=== PATIENT | female | born 1965 | race Caucasian/White ===

== ENCOUNTER → 2017-05-08 | Outpatient (CLI) | payer BC ==
--- NOTE | 2017-05-08 11:49 | XR ---
EXAM TYPE: LUMBAR SPINE X RAY SERIES COMPARISON: NONE HISTORY: Pain TECHNIQUE: 4 views are submitted. FINDINGS: Alignment is anatomic. The pedicles are intact. The transverse processes are intact. There is no s pondylolysis or spondylolisthesis. Surgical clips in the gallbladder fossa. There is a grade 1 anter olisthesis of L4 on L5. Degenerative disc disease at levels L3-4 and most marked findings at L5-S1. F acet arthropathy at L3-4, L4-5 and L5-S1. IMPRESSION: 1. Multilevel degenerative disc disease with severe changes at L5-S1. 2. Multilevel facet arthropathy with grade 1 anterolisthesis L4 on L5..
--- NOTE | 2017-05-08 12:31 | MM ---
Reason for exam: additional evaluation requested from prior study. Last mammogram was performed 3 years and 10 months ago. History: Benign US right guided mammotome of the right breast, March 17, 2008. Benign right US cyst aspiration of the right breast, May 27, 2007. Benign US right core biopsy of the right breast, May 27, 2007. Took hormonal contraceptives for 3 years beginning at age 40. Physical Findings: Nurse did not find any significant physical abnormalities on exam. MG 3D Diag Mammo W/Cad ROBERTA Bilateral CC and MLO view(s) were taken. Prior study comparison: July 08, 2013, left breast MG work up mamm w CAD LT. June 25, 2013, bilateral MG screening mammo w CAD. The breast tissue is heterogeneously dense. This may lower the sensitivity of mammography. Previous mammotome biopsy in the right breast. There is chronic nodularity in the left breast. No significant new findings when compared with previous films. These results were verbally communicated with the patient and result sheet given to the patient on 05/08/17. ASSESSMENT: Benign, BI-RAD 2 RECOMMENDATION: Routine screening mammogram of both breasts in 1 year.
== END | disposition home or self-care (01) ==
LOC: RADMAMWWP 10:57
PROVIDERS: ATTEND Family Medicine
DX: R92.8 Other abnormal and inconclusive findings on diagnostic imaging of breast (principal); M54.5 Low back pain; M51.37 Other intervertebral disc degeneration, lumbosacral region; M43.16 Spondylolisthesis, lumbar region
CPT/HCPCS: 72110; 77066; G0279

== ENCOUNTER 2017-10-07 18:12 | Emergency (ER) | payer BC ==
[2017-10-07 18:24] VITALS: RESP 16; TEMP 98
--- NOTE | 2017-10-07 18:56 | ED ---
General Adult HPI - General Chief complaint: Chest Pain Stated complaint: Chest pain Time Seen by Provider: 10/07/17 18:28 Source: patient, RN notes reviewed, old records reviewed Mode of arrival: ambulatory Limitations: no limitations - History of Present Illness Initial comments: This is a 53-year-old female the ER for evaluation of feeling something in her chest. She denies pain denies pressure, has a strong family history of heart disease but has no high blood pressure no diabetes mildly [place] high cholesterol and a nonsmoker. Patient states she had a stress test this year which was normal. She denies any symptoms at that time it was more of a maintenance type stress test. Patient states symptoms just bothered throughout the day and recurred more than once a she went to come for evaluation she did make appointment with her family doctor who told her to come to the ER. Again at this time patient remains asymptomatic no chest pain or shortness of breath. She states she does occasionally get diaphoretic but she states that seems to be with shows exercise-induced asthma but denies shortness of breath - Related Data Home Medications Medication Instructions Recorded Confirmed buPROPion HCL [Wellbutrin XL] 300 mg PO DAILY 10/29/13 10/07/17 Methylphenidate HCl [Ritalin] 10 mg PO TID 02/19/16 10/07/17 valACYclovir [Valtrex] 500 mg PO BID 02/19/16 10/07/17 Celebrex (Unknown Dose) 1 tab PO DIRECTED 10/07/17 10/07/17 Cyclobenzaprine [Flexeril] 10 mg PO HS 10/07/17 10/07/17 Ibuprofen [Motrin Ib] 400 mg PO Q6H PRN 10/07/17 10/07/17 Multivitamin,Therapeutic [Thera] 1 tab PO DAILY 10/07/17 10/07/17 Allergies Allergy/AdvReac Type Severity Reaction Status Date / Time No Known Allergies Allergy Verified 10/07/17 18:45 Review of Systems ROS Statement: Those systems with pertinent positive or pertinent negative responses have been documented in the HPI. ROS Other: All systems not noted in ROS Statement are negative. Past Medical History Past Medical History: Thyroid Disorder Additional Past Medical History / Comment(s): arthritis History of Any Multi-Drug Resistant Organisms: None Reported Past Surgical History: Cholecystectomy, Tubal Ligation Additional Past Surgical History / Comment(s): LEFT THYROID BIOPSY. Past Anesthesia/Blood Transfusion Reactions: No Reported Reaction Past Psychological History: Depression Smoking Status: Never smoker Past Alcohol Use History: Occasional, Rare Past Drug Use History: None Reported - Past Family History Mother Family Medical History: Cancer Additional Family Medical History / Comment(s): mother ovarian, father colon, son bone cancer Father Family Medical History: Cancer Additional Family Medical History / Comment(s): COLON CANCER Son(s) Family Medical History: Cancer Additional Family Medical History / Comment(s): BONE CANCER. General Exam Limitations: no limitations General appearance: alert, in no apparent distress Head exam: Present: atraumatic, normocephalic, normal inspection Eye exam: Present: normal appearance, PERRL, EOMI. Absent: scleral icterus, conjunctival injection, periorbital swelling ENT exam: Present: normal exam, mucous membranes moist Neck exam: Present: normal inspection. Absent: tenderness, meningismus, lymphadenopathy Respiratory exam: Present: normal lung sounds bilaterally. Absent: respiratory distress, wheezes, rales, rhonchi, stridor Cardiovascular Exam: Present: regular rate, normal rhythm, normal heart sounds. Absent: systolic murmur, diastolic murmur, rubs, gallop, clicks GI/Abdominal exam: Present: soft, normal bowel sounds. Absent: distended, tenderness, guarding, rebound, rigid Extremities exam: Present: normal inspection, full ROM, normal capillary refill. Absent: tenderness, pedal edema, joint swelling, calf tenderness Back exam: Present: normal inspection Neurological exam: Present: alert, oriented X3, CN II-XII intact Psychiatric exam: Present: normal affect, normal mood Skin exam: Present: warm, dry, intact, normal color. Absent: rash Course Vital Signs 10/07/17 18:17 Temperature 98.0 F Pulse Rate 99 Respiratory 16 Rate O2 Sat by Pulse 98 Oximetry - Reevaluation(s) Reevaluation #1: 10/07/17 19:57 Patient remains without significant chest pain here in the emergency room Reevaluation #2: 10/07/17 19:57 Medical record is reviewed including stress test EKG Findings - EKG Comments: EKG Findings:: EKG shows sinus rhythm rate of 82, OK 164, QRS 88, QTc 441 Medical Decision Making - Medical Decision Making 52 female the ER for evaluation of chest pain. Family history of heart disease no other significant cardiac risk factors. Patient will be discharged home, patient's symptoms are more palpitations, again no shortness of breath no pain. Patient will follow-up with family care - Lab Data Result diagrams: 10/07/17 18:41 10/07/17 18:41 Lab Results 10/07/17 10/07/17 10/07/17 Range/Units 18:41 18:41 18:41 WBC 9.7 (3.8-10.6) k/uL RBC 4.20 (3.80-5.40) m/uL Hgb 12.3 (11.4-16.0) gm/dL Hct 37.2 (34.0-46.0) % MCV 88.7 (80.0-100.0) fL MCH 29.4 (25.0-35.0) pg MCHC 33.2 (31.0-37.0) g/dL RDW 14.0 (11.5-15.5) % Plt Count 292 (150-450) k/uL Neutrophils % 63 % Lymphocytes % 28 % Monocytes % 5 % Eosinophils % 1 % Basophils % 0 % Neutrophils # 6.1 (1.3-7.7) k/uL Lymphocytes # 2.7 (1.0-4.8) k/uL Monocytes # 0.5 (0-1.0) k/uL Eosinophils # 0.1 (0-0.7) k/uL Basophils # 0.0 (0-0.2) k/uL PT (9.0-12.0) sec INR (<1.2) APTT (22.0-30.0) sec Sodium 138 (137-145) mmol/L Potassium 4.1 (3.5-5.1) mmol/L Chloride 104 (98-107) mmol/L Carbon Dioxide 24 (22-30) mmol/L Anion Gap 10 mmol/L BUN 19 H (7-17) mg/dL Creatinine 0.90 (0.52-1.04) mg/dL Est GFR (CKD-EPI)AfAm 85 (>60 ml/min/1.73 sqM) Est GFR (CKD-EPI)NonAf 74 (>60 ml/min/1.73 sqM) Glucose 126 H (74-99) mg/dL Calcium 9.2 (8.4-10.2) mg/dL Magnesium 1.9 (1.6-2.3) mg/dL Total Bilirubin 0.2 (0.2-1.3) mg/dL AST 23 (14-36) U/L ALT 29 (9-52) U/L Alkaline Phosphatase 72 (38-126) U/L Total Creatine Kinase 118 (30-135) U/L CK-MB (CK-2) 0.7 (0.0-2.4) ng/mL CK-MB (CK-2) Rel Index 0.6 Troponin I <0.012 (0.000-0.034) ng/mL Total Protein 7.0 (6.3-8.2) g/dL Albumin 3.9 (3.5-5.0) g/dL 10/07/17 Range/Units 18:41 WBC (3.8-10.6) k/uL RBC (3.80-5.40) m/uL Hgb (11.4-16.0) gm/dL Hct (34.0-46.0) % MCV (80.0-100.0) fL MCH (25.0-35.0) pg MCHC (31.0-37.0) g/dL RDW (11.5-15.5) % Plt Count (150-450) k/uL Neutrophils % % Lymphocytes % % Monocytes % % Eosinophils % % Basophils % % Neutrophils # (1.3-7.7) k/uL Lymphocytes # (1.0-4.8) k/uL Monocytes # (0-1.0) k/uL Eosinophils # (0-0.7) k/uL Basophils # (0-0.2) k/uL PT 9.8 (9.0-12.0) sec INR 1.0 (<1.2) APTT 26.2 (22.0-30.0) sec Sodium (137-145) mmol/L Potassium (3.5-5.1) mmol/L Chloride (98-107) mmol/L Carbon Dioxide (22-30) mmol/L Anion Gap mmol/L BUN (7-17) mg/dL Creatinine (0.52-1.04) mg/dL Est GFR (CKD-EPI)AfAm (>60 ml/min/1.73 sqM) Est GFR (CKD-EPI)NonAf (>60 ml/min/1.73 sqM) Glucose (74-99) mg/dL Calcium (8.4-10.2) mg/dL Magnesium (1.6-2.3) mg/dL Total Bilirubin (0.2-1.3) mg/dL AST (14-36) U/L ALT (9-52) U/L Alkaline Phosphatase (38-126) U/L Total Creatine Kinase (30-135) U/L CK-MB (CK-2) (0.0-2.4) ng/mL CK-MB (CK-2) Rel Index Troponin I (0.000-0.034) ng/mL Total Protein (6.3-8.2) g/dL Albumin (3.5-5.0) g/dL - Radiology Data Radiology results: report reviewed (Chest x-rays negative for acute disease), image reviewed Disposition Clinical Impression: Atypical chest pain, Palpitations Disposition: HOME SELF-CARE Condition: Good Instructions: Chest Pain (ED) Is patient prescribed a controlled substance at d/c from ED?: No Referrals: Nabeel Collins DO [Primary Care Provider] - 1-2 days
[2017-10-07 19:01] LABS: Basophils % (A) 0 %; Eosinophils # (A) 0.1 k/uL (0-0.7); Eosinophils % (A) 1 %; HCT 37.2 % (34.0-46.0); HGB 12.3 gm/dL (11.4-16.0); Lymphocytes # (A) 2.7 k/uL (1.0-4.8); Lymphocytes % (A) 28 %; MCH 29.4 pg (25.0-35.0); MCHC 33.2 g/dL (31.0-37.0); MCV 88.7 fL (80.0-100.0); Mean Platelet Volume 6.1; Monocytes # (A) 0.5 k/uL (0-1.0); Monocytes % (A) 5 %; Neutrophils # (A) 6.1 k/uL (1.3-7.7); Neutrophils % (A) 63 %; Platelet Count 292 k/uL (150-450); WBC 9.7 k/uL (3.8-10.6)
[2017-10-07 19:14] LABS: Creatine Kinase 118 U/L (30-135)
[2017-10-07 19:16] LABS: Albumin 3.9 g/dL (3.5-5.0); Calcium 9.2 mg/dL (8.4-10.2); Magnesium 1.9 mg/dL (1.6-2.3); Potassium 4.1 mmol/L (3.5-5.1); Total Bilirubin 0.2 mg/dL (0.2-1.3)
[2017-10-07 19:17] LABS: Partial Thromboplastin Time 26.2 sec (22.0-30.0); Prothrombin Time 9.8 sec (9.0-12.0)
[2017-10-07 19:26] LABS: Creatine Kinase MB 0.7 ng/mL (0.0-2.4); Troponin I <0.012 ng/mL (0.000-0.034)
--- NOTE | 2017-10-07 19:26 | XR ---
EXAMINATION TYPE: XR chest 2V DATE OF EXAM: 10/07/2017 COMPARISON: 02/19/2016 HISTORY: Chest pain TECHNIQUE: Frontal and lateral views of the chest are obtained. FINDINGS: Heart and mediastinum are normal. Lungs are clear. Diaphragm is normal. Bony thorax is int act. IMPRESSION: Normal chest. No change.
[2017-10-07 20:16] VITALS: BP 142/95; PULSE 87
== END 2017-10-07 20:28 | disposition home or self-care (01) ==
LOC: EC 18:12
DX: R07.89 Other chest pain (principal); R00.2 Palpitations; M19.90 Unspecified osteoarthritis, unspecified site; F32.9 Major depressive disorder, single episode, unspecified; Z79.899 Other long term (current) drug therapy; Z82.49 Family history of ischemic heart disease and other diseases of the circulatory system
CPT/HCPCS: 36415; 71046; 80053; 82550; 82553; 83735; 84484; 85025; 85610; 85730; 93005; 99285

== ENCOUNTER → 2019-01-15 | Outpatient (CLI) | payer BC ==
--- NOTE | 2019-01-15 10:03 | US ---
EXAMINATION TYPE: US thyroid st tissue head/neck DATE OF EXAM: 01/15/2019 COMPARISON: US CLINICAL HISTORY: R22.0 LOCALIZED SWELLING,MASS IN HEAD. F/U left thyroid nodule GLAND SIZE: Right Lobe: 4.6 x 1.4 x 1.1 cm Overall Parenchyma: homogenous Left Lobe: 5.4 x 2.1 x 2.0 cm Overall Parenchyma: heterogeneous Isthmus Thickness: 0.3 cm NODULES LEFT: # of nodules measured on left: 1 1. 3.5 X 1.8 x 2.0 cm isoechoic solid nodule at the mid pole with well-defined margins;This nodule is wider than tall and shows intranodular vascularity. Prior size: 2.5 x 1.5 x 1.4 cm Bilateral neck scanned, no evidence of lymphadenopathy. Left thyroid nodule increased in size when c ompared to previous. IMPRESSION: Enlarging left thyroid nodule. The need to biopsy should be made on a clinical basis.
== END | disposition home or self-care (01) ==
LOC: RADUSWWP 09:28
PROVIDERS: ATTEND Family Medicine
DX: E04.1 Nontoxic single thyroid nodule (principal)
CPT/HCPCS: 76536

== ENCOUNTER → 2019-02-01 | Outpatient (CLI) | payer BC ==
[2019-02-01 17:53] LABS: T4, Free (Free Thyroxine) 0.9 ng/dL (0.80-1.80)
== END | disposition home or self-care (01) ==
LOC: LABWHC1 10:33
PROVIDERS: ATTEND Otolaryngology
DX: E04.1 Nontoxic single thyroid nodule (principal)
CPT/HCPCS: 36415; 84439; 84443; 86376

== ENCOUNTER 2019-02-22 12:03 | Day surgery (SDC) | payer BC ==
[2019-02-22 14:28] VITALS: TEMP 98.4
[2019-02-22 14:29] VITALS: RESP 18
[2019-02-22 14:30] VITALS: BP 131/88; PULSE 75
--- NOTE | 2019-02-22 14:49 | US ---
ULTRASOUND GUIDED FNA THYROID BIOPSY: CLINICAL HISTORY: Left thyroid nodule FINDINGS: The procedure was explained to the patient. The risks, complications, benefits and alternatives were discussed and any questions were answered. Informed consent was obtained. Patient was placed supin e on the ultrasound table and prepped and draped in the usual sterile fashion. Utilizing a 25 gauge needle, five passes were made into the requested left thyroid nodule. Patient was stable throughout the procedure. Pathology is pending. All elements of maximal barrier technique were utilized. IMPRESSION: 1. Successful ultrasound guided FNA thyroid biopsy.
== END 2019-02-22 13:20 | disposition home or self-care (01) ==
LOC: RADPROMAIN 12:03
PROVIDERS: ATTEND Otolaryngology
DX: E04.1 Nontoxic single thyroid nodule (principal)
CPT/HCPCS: 10005; 88173; 88305

== ENCOUNTER 2019-03-15 05:55 | Day surgery (SDC) | payer BC ==
[2019-03-08 12:53] VITALS: BMI 38.0
--- NOTE | 2019-03-14 20:49 | HP ---
HISTORY AND PHYSICAL REASON FOR ADMISSION: Surgery tomorrow March 15, 2019. CHIEF COMPLAINT: Heavy menstrual bleeding, known uterine fibroids, known check gene mutation. HISTORY OF PRESENT ILLNESS: This is a pleasant female, 3, para 2-0-1-2, that presents for robotic assisted vaginal hysterectomy, bilateral salpingo-oophorectomy. The patient has been seen multiple times for uterine fibroids. She has seen a genetic counselor in addition to a breast surgeon regarding her known genetic mutation. The patient has had multiple ultrasounds with known enlarged uterine fibroids. The patient has been receiving Lupron in attempt to decrease the size of these fibroids for the last 3 months. PAST MEDICAL HISTORY: 1. Known check gene genetic mutation. 2. Fibroid uterus. PAST SURGICAL HISTORY: Significant for a cholecystectomy done on 02/18/2017, a tonsillectomy and tubal in 1988. MEDICATIONS: She is on: 1. Celebrex. 2. Lupron. 3. Multivitamin. 4. Ritalin 10 mg. 5. Turmeric. 6. Vitamin B12 with folic acid. 7. Wellbutrin 150 mg daily. ALLERGIES: She has no known drug allergies. PAST FAMILY MEDICAL HISTORY: Significant for an ovarian cancer which her mother was diagnosed in her 30s, uterine cancer also her mother. Heart disease in her mother. Colon and bone cancer in her mother. [employer] HISTORY: She began having menstrual cycles at age 11. Menstrual cycles have been regular prior to Lupron. She is a 3, para 2-0-1-2 with 2 prior vaginal deliveries and an ectopic . SOCIAL HISTORY: She is a nonsmoker, she does have minimal alcohol use and she is . REVIEW OF SYSTEMS: She denies body aches or night sweats. She admits to amenorrhea. She denies urinary urgency, frequency, or dysuria. She denies changes in bowel habits such as constipation, diarrhea, nausea, or vomiting. Psychiatric: She denies difficulty sleeping, but does note positive depression and some anxiety. PHYSICAL EXAM: Her vital signs are noted to be stable. She is a well-nourished, well-developed, alert female in no acute distress, her head is normocephalic, atraumatic. CHEST: Clear to auscultation bilaterally. Her heart has a regular rate and rhythm. Her abdomen is noted to be obese. Her uterus is noted to be enlarged with no adnexal masses. She is noted to have a normal mood and her affect is appropriate. Her judgment and insight are normal. ASSESSMENT: Uterine fibroids with check gene mutation, family history of ovarian cancer. PLAN: Robotic assisted vaginal hysterectomy with bilateral salpingo-oophorectomy, diagnostic cystoscopy. Risks are reviewed with the patient in detail including, but not limited to infection, bleeding, damage to bladder, bowel, ureteric injury. Patient has discussed the possibility of open surgery secondary to uterine size and inability to complete the procedure robotically/laparoscopically. The patient states understanding of all these risks and wishes to proceed. Informed consent was obtained in the office on multiple preoperative appointments. The patient states understanding and wishes to proceed to the operating room. SOURCE OF CONSULT: 1965 thank you and. MMEMILIANOL / IJN: [id number] /
[~2019-03-15 05:55] MED LIST: DEXAMETHASONE SOD PHOSPHATE 10 MG/ML 1 ML VIAL IV ONE; LACTATED RINGERS 1,000 ML IV SCH; LIDOCAINE 1% 20 ML VIAL (10MG/ML) FOR IV START INTRADERMA PRN; ONDANSETRON 4 MG/2 ML VIAL IVP ONE; SCOPOLAMINE 1.5MG/72HR PATCH TRANSDERM ONE
[2019-03-15] MEDS ORDERED: ACETAMINOPHEN IV (For NPO) 1,000 MG in EMPTY BAG 1 BAG IVPB ONE (06:00)
[2019-03-15] MEDS ORDERED: MIDAZOLAM 2 MG/2 ML VIAL IVP ONE ×2 (07:00→07:10)
[2019-03-15] MEDS ORDERED: NEOSTIGMINE 1 MG/ML 10 ML VIAL ONE (07:29)
[2019-03-15] MEDS ORDERED: SUCCINYLCHOLINE CHLORIDE 100 MG/5 ML SYR IV ONE (07:29)
[2019-03-15] MEDS ORDERED: PHENYLEPHRINE-0.9% NACL SYG 1 MG/10 ML SYRINGE ONE (07:29)
[2019-03-15] MEDS ORDERED: MIDAZOLAM 2 MG/2 ML VIAL ONE (07:29)
[2019-03-15] MEDS ORDERED: fentaNYL (PF) 50 MCG/ML 2 ML AMP ONE (07:29)
[2019-03-15] MEDS ORDERED: PROPOFOL 10 MG/ML 20 ML VIAL IV ONE (07:29)
[2019-03-15] MEDS ORDERED: LIDOCAINE 1% INJ 10MG/ML (20 ML MDV) ONE (07:29)
[2019-03-15] MEDS ORDERED: GLYCOPYRROLATE 0.2 MG/ML 2 ML VIAL ONE (07:29)
[2019-03-15] MEDS ORDERED: MEPERIDINE 50 MG/ML SYRINGE ONE (07:29)
[2019-03-15] MEDS ORDERED: ROCURONIUM BROMIDE 10 MG/ML 10 ML VIAL IV ONE (07:29)
[2019-03-15] MEDS ORDERED: LACTATED RINGERS 1,000 ML IV ONE (08:21)
[2019-03-15] MEDS ORDERED: BUPIVACAINE (PF) 0.25% 30 ML VIAL SQ ONE ×2 (08:36)
[2019-03-15] MEDS ORDERED: ONDANSETRON 4 MG/2 ML VIAL IVP PRN (10:26)
[2019-03-15] MEDS ORDERED: IBUPROFEN 600 MG TAB PO PRN (10:26)
[2019-03-15] MEDS ORDERED: HYDROcodone/APAP 5-325MG 1 EACH TAB PO PRN (10:28)
[2019-03-15] MEDS ORDERED: IBUPROFEN IV 800 MG in SODIUM CHLORIDE 0.9% 250 ML IV ONE (10:29)
--- NOTE | 2019-03-15 10:37 | P.OP ---
Date of Procedure: 03/15/19 Preoperative Diagnosis: Enlarged uterus, uterine fibroids, chek 2 gene mutation, family history of ovarian cancer Postoperative Diagnosis: Same Procedure(s) Performed: Robotic-assisted vaginal hysterectomy with left salpingo-oophorectomy, diagnostic cystoscopy. Anesthesia: AMEA Surgeon: Suzi Moran Knot Borer #1: Janis Mendoza Estimated Blood Loss (ml): 100 IV fluids (ml): 1,200 Urine output (ml): 500 Pathology: other (Uterus cervix left fallopian tube and ovary multiple fibroids) Condition: stable Disposition: PACU Indications for Procedure: Enlarged uterus, uterine fibroids, genetic mutation, family history of ovarian cancer. Operative Findings: Grossly enlarged uterus with multiple fibroids. Normal-appearing right ovary, left ovary adherent to the pelvic sidewall and colon, history of prior ectopic most likely the cause of this scarring. Description of Procedure: Patient was seen in the preoperative area and multiple questions were answered. Patient stated understanding and wished to proceed with the procedure. Patient was taken back to the operating suite where general anesthesia was obtained without difficulty by the anesthesia department. She was prepped and draped in the normal sterile fashion in the dorsal lithotomy position. Flowers catheter was placed under sterile technique. A weighted speculum was placed in the posterior vaginal vault intralipids the cervix is visualized and grasped with a single- tooth tenaculum. The endocervical canal was then dilated and a [employer] uterine manipulator was placed. This cup was placed firmly against the cervix and all instruments were removed from the patient's vaginal vault. Attention was then turned to the patient's abdomen where 3 fingerbreadths above the umbilicus a small skin incision is made. Through this incision the various needles placed. Once the Veress needle was deemed to be in the proper position with a drop of CO2 pressure with insufflation of CO2 gas CO2 insufflation was allowed to occur. This incision was then elongated to 12 mm and a 12 mm trocar and sleeve with the laparoscope in place was placed toward the pneumoperitoneum. The trocar is removed with the sheath remaining in place and the above-noted findings are visualized. The additional port sites are then placed at 10 cm lateral and 3 cm inferior to midline port these are 8 mm da Joshua operative ports. In the left upper quadrant a 12 mm trocar and sleeve is placed under direct visualization. At this time the da Joshua robot was docked in the usual fashion. In the right operative arm the monopolar scissors is placed, and the left operative arm the bipolar forceps is placed. Attention then turned to the patient's left uterine ovarian ligament which was mottled secondary to prior ectopic surgery. It was coagulated distally and proximally divided. The round ligament was visualized coagulated distally and proximally divided. The vesicouterine peritoneum was identified and the bladder flap was then created using sharp and blunt dissection. Attention was then turned to the patient's right infundibulopelvic ligament which was visualized coagulated distally and proximally and divided. Hemostasis was appreciated. This continued through the broad toward the round which was coagulated and transected. Hemostasis was appreciated. The bladder flap was then created from the right using sharp and blunt dissection. At this time a Ray-Reinaldo was introduced into the abdomen as a means to dissect the bladder bluntly away from the operating field. This was then removed. The ascending branch of the uterine artery was visualized on the right coagulated distally and proximally divided. This was then repeated on the opposite side. Hemostasis was appreciated. At this time the only remaining attachment was a vaginal attachment therefore colpotomy incision was made in a circumferential fashion. Secondary to the uterine size of the fibroids were transected, 3 fibroids were transected from the body of the uterus the uterus was delivered through the vaginal opening along with these 3 fibroids. The vaginal cuff was then copiously irrigated and hemostasis was appreciated. The vaginal cuff was then closed with 0 Vicryl in a [id number] fashion. 5 sutures were used to obtain closure. Irrigation was once again performed, hemostasis was appreciated. At this time all instruments were removed from the patient's abdomen and the da Joshua was undocked in the usual fashion. Attention was then turned to the patient's Flowers catheter which was removed without difficulty clear urine was noted to be draining within the Flowers tube. A cystoscopy was then performed. Cystoscope through the urethra and toward the bladder bladder bubble was noted. Both ureteral orifices were noted to be spilling clear yellow urine. At this time the cystoscopy fluid along with the cystoscope was removed and the Flowers catheter was replaced. Attention then turned the patient's abdomen where the skin incisions were closed with 4-0 Vicryl in a subcuticular fashion. Steri-Strips and sterile dressings were applied as needed. Patient tolerated procedure well all counts were correct 2 and patient was taken the recovery room awake in stable condition.
[2019-03-15] MEDS ORDERED: ONDANSETRON 4 MG/2 ML VIAL IVP ONE (11:10)
[2019-03-15] MEDS: HYDROmorphone 0.5 MG/0.5 ML SYRINGE IVP PRN ×2 (11:17→11:30)
[2019-03-15] MEDS: HYDROcodone/APAP 5-325MG 1 EACH TAB PO PRN ×2 (17:00→22:22)
[2019-03-15 18:05] VITALS: BP 133/70; PULSE 86; RESP 18; TEMP 97.6
[2019-03-15] MEDS: SENNOSIDES-DOCUSATE SODIUM 1 EACH TAB PO SCH (20:19)
[2019-03-16] MEDS: HYDROcodone/APAP 5-325MG 1 EACH TAB PO PRN ×2 (04:12→11:32)
[2019-03-16 06:17] LABS: Basophils % (A) 0 %; Eosinophils # (A) 0.3 k/uL (0-0.7); Eosinophils % (A) 3 %; HCT 34.3 % (34.0-46.0); HGB 11.3 gm/dL (11.4-16.0); Lymphocytes # (A) 1.5 k/uL (1.0-4.8); Lymphocytes % (A) 14 %; MCH 30.5 pg (25.0-35.0); MCHC 33.1 g/dL (31.0-37.0); Mean Platelet Volume 7.1; Monocytes # (A) 0.5 k/uL (0-1.0); Monocytes % (A) 5 %; Neutrophils # (A) 8.3 k/uL (1.3-7.7); Neutrophils % (A) 77 %; Platelet Count 262 k/uL (150-450); RBC 3.72 m/uL (3.80-5.40); RDW 13.1 % (11.5-15.5); WBC 10.9 k/uL (3.8-10.6)
[2019-03-16] MEDS ORDERED: LEVOTHYROXINE 50 MCG TAB PO SCH (06:30)
[2019-03-16] MEDS: SENNOSIDES-DOCUSATE SODIUM 1 EACH TAB PO SCH (07:47)
--- NOTE | 2019-03-16 08:35 | P.DS ---
Providers Date of admission: 03/15/2019 Expected date of discharge: 03/16/19 Attending physician: Suzi Moran Primary care physician: Nabeel Collins - Discharge Diagnosis(es) (1) Enlarged uterus Current Visit: Yes Status: Acute (2) Uterine fibroid Current Visit: Yes Status: Acute (3) FH: ovarian cancer Current Visit: Yes Status: Acute (4) Obesity (BMI 30-39.9) Current Visit: No Status: Chronic Hospital Course: This is a 53-year-old 3 para 2011 that presents for robotic cyst vaginal hysterectomy with bilateral salpingo-for ectomy, diagnostic cystoscopy on 03/15/2019. Patient was admitted to the hospital and seen in the preoperative area. Multiple questions were answered in the office and patient had been seen multiple times to discuss/review plan of care. Patient has a maternal history of ovarian cancer, subsequent diagnosis of a check to gene mutation, known uterine fibroids with an enlarged uterus. Patient has been undergoing Lupron treatment for the last 3 months in attempt to shrink the fibroids and make laparoscopic surgery possible. Patient is essentially a healthy woman with a history of anxiety and depression. For full details on her history please see the dictated history and physical. Patient was taken back to the operating suite where her buttocks cyst vaginal hysterectomy with right salpingo-for acne was completed without difficulty. The left ovary was noted to be streaked in nature and connected to bowel therefore the decision was made to keep that ovary in situ secondary to risk of bowel injury upon removal. After the surgery was completed cystoscopy was performed which was normal in nature. Both ureteral orifices were noted to be spilling clear yellow urine, bladder was noted to be intact with a bladder bubble noted. Patient has had multiple voids spontaneously sense surgery. On this postop day #1 she is overall feeling well. She is ambulating and voiding without difficulty. She is tolerating clear liquids and vessels without nausea or vomiting. She states her pain is well- controlled. She does state she is ready for discharge home. Patient Condition at Discharge: Good Plan - Discharge Summary Discharge Rx Participant: Yes New Discharge Prescriptions: No Action Methylphenidate HCl [Ritalin] 10 mg PO TID PRN PRN Reason: adhd Ibuprofen [Motrin Ib] 400 mg PO Q6H PRN PRN Reason: Pain Multivitamin,Therapeutic [Thera] 1 tab PO DAILY Celecoxib [CeleBREX] 200 mg PO DAILY ALPRAZolam [Xanax] 0.5 mg PO BID PRN PRN Reason: Anxiety buPROPion XL [Wellbutrin Xl] 450 mg PO DAILY Turmeric Root Extract [Turmeric] 538 mg PO DAILY Levothyroxine Sodium [Synthroid] 50 mcg PO DAILY Sea [place] 1 tab PO DAILY Cyanocobalamin (Vitamin B-12) [Vitamin B-12] 1,000 mcg PO DAILY diphenhydrAMINE [Benadryl] 25 mg PO HS PRN PRN Reason: sleeping Discharge Medication List Methylphenidate HCl [Ritalin] 10 mg PO TID PRN 02/19/16 [History] Celecoxib [CeleBREX] 200 mg PO DAILY 10/07/17 [History] Ibuprofen [Motrin Ib] 400 mg PO Q6H PRN 10/07/17 [History] Multivitamin,Therapeutic [Thera] 1 tab PO DAILY 10/07/17 [History] ALPRAZolam [Xanax] 0.5 mg PO BID PRN 02/04/19 [History] Turmeric Root Extract [Turmeric] 538 mg PO DAILY 02/04/19 [History] buPROPion XL [Wellbutrin Xl] 450 mg PO DAILY 02/04/19 [History] Cyanocobalamin (Vitamin B-12) [Vitamin B-12] 1,000 mcg PO DAILY 03/08/19 [History] Levothyroxine Sodium [Synthroid] 50 mcg PO DAILY 03/08/19 [History] Sea Kelp 1 tab PO DAILY 03/08/19 [History] diphenhydrAMINE [Benadryl] 25 mg PO HS PRN 03/10/19 [History] Follow up Appointment(s)/Referral(s): Suzi Moran DO [Doctor of Osteopathic Medicine] - 2 Weeks Patient Instructions/Handouts: Menopause (GEN), Laparoscopic Hysterectomy (DC), Laparoscopic Hysterectomy (GEN) Activity/Diet/Wound Care/Special Instructions: Patient is able to take [id number] ibuprofen 600 mg every 6 hours as needed for pain, no tub baths or intercourse until released by myself at her postop appointment most likely 8 weeks post operatively. Patient is to avoid heavy lifting nothing greater than 15-20 pounds. Patient can expect vaginal spotting at times as the healing process continues. Patient is to call the office with any concerns regarding her postoperative period. Discharge Disposition: HOME SELF-CARE
[2019-03-16] MEDS ORDERED: buPROPion XL 150 MG TAB.ER.24H PO SCH (09:00)
== END 2019-03-16 13:15 | disposition home or self-care (01) ==
LOC: OR 05:55 → 4FBP 10:18 → OR 03-16 13:15
PROVIDERS: ATTEND Obstetrics & Gynecology Obstetrics
DX: D25.9 Leiomyoma of uterus, unspecified (principal); N83.11 Corpus luteum cyst of right ovary; N80.0 Endometriosis of uterus; N72 Inflammatory disease of cervix uteri; Z90.49 Acquired absence of other specified parts of digestive tract; Z15.01 Genetic susceptibility to malignant neoplasm of breast; Z98.890 Other specified postprocedural states; Z79.890 Hormone replacement therapy; Z79.899 Other long term (current) drug therapy; Z80.41 Family history of malignant neoplasm of ovary; Z80.49 Family history of malignant neoplasm of other genital organs; Z82.49 Family history of ischemic heart disease and other diseases of the circulatory system; Z80.0 Family history of malignant neoplasm of digestive organs; Z80.8 Family history of malignant neoplasm of other organs or systems; Z88.5 Allergy status to narcotic agent; E07.9 Disorder of thyroid, unspecified
CPT/HCPCS: 58554; S2900; 81025; 85025; 86850; 86900; 86901; 88307

== ENCOUNTER → 2019-09-22 | Outpatient (CLI) | payer BC ==
--- NOTE | 2019-09-22 16:24 | US ---
EXAMINATION TYPE: US thyroid st tissue head/neck DATE OF EXAM: 09/22/2019 COMPARISON: US 01/15/2019 CLINICAL HISTORY: E04.1 Thyroid nodule. Takes Levothyroxine. GLAND SIZE: Right Lobe: 4.6 x 1.6 x 1.3 cm Overall Parenchyma: homogenous Left Lobe: 5.3 x 2.6 x 2.3 cm Overall Parenchyma: homogeneous Isthmus Thickness: 0.4 cm NODULES RIGHT: # of nodules measured on right: 0 LEFT: # of nodules measured on left: 1 1. 3.9 X 2.0 x 1.8 cm hypoechoic solid nodule at the mid and lower pole with well-defined margins. This nodule is wider than tall and shows intranodular vascularity. Prior size: 3.5 x 1.8 x 2.0 cm ISTHMUS: # of nodules measured in the isthmus: 0 Bilateral neck scanned: no evidence of lymphadenopathy. IMPRESSION: Large thyroid nodule left lobe thyroid. This appears essentially stable from the comparison of 2019
== END | disposition home or self-care (01) ==
LOC: RADUSWWP 09-20 15:13
PROVIDERS: ATTEND Otolaryngology
DX: E04.1 Nontoxic single thyroid nodule (principal)
CPT/HCPCS: 76536

== ENCOUNTER → 2019-09-22 | Outpatient (CLI) | payer BC ==
[2019-09-22 20:02] LABS: T4, Free (Free Thyroxine) 0.9 ng/dL (0.80-1.80)
== END | disposition home or self-care (01) ==
LOC: LABWHC1 13:25
PROVIDERS: ATTEND Otolaryngology
DX: E03.9 Hypothyroidism, unspecified (principal)
CPT/HCPCS: 36415; 84439; 84443

== ENCOUNTER → 2020-05-03 | Outpatient (CLI) | payer BC ==
--- NOTE | 2020-05-03 15:16 | US ---
EXAMINATION TYPE: US thyroid st tissue head/neck DATE OF EXAM: 05/03/2020 COMPARISON: NONE CLINICAL HISTORY: 55-year-old female E04.1 Thyroid nodule. TECHNIQUE: Multiple sonographic images of the thyroid gland are obtained. FINDINGS: GLAND SIZE: Right Lobe: 3.8 x 1.3 x 1.2cm Overall Parenchyma: homogenous Left Lobe: 5.0 x 1.9 x 2.1cm Overall Parenchyma: homogeneous Isthmus Thickness: 0.3m NODULES RIGHT: # of nodules measured on right: 0 LEFT: # of nodules measured on left: 1 1. 3.6 x 1.6 x 1.9cm, mixed isoechoic and hypoechoic heterogeneous solid nodule, which is wider than tall, with smooth margins, without echogenic foci. Prior size: 3.9 X 2.0 x 1.8cm ISTHMUS: # of nodules measured in the isthmus: 0 Bilateral neck scanned, no evidence of lymphadenopathy. IMPRESSION: Redemonstrated 3.6 cm, TR 4 nodule in the left lobe, slightly smaller from 3.9 cm, previously.
== END | disposition home or self-care (01) ==
LOC: RADUSWWP 14:48
PROVIDERS: ATTEND Otolaryngology
DX: E04.1 Nontoxic single thyroid nodule (principal)
CPT/HCPCS: 76536

== ENCOUNTER → 2020-09-22 | Outpatient (CLI) | payer BC | END | disposition home or self-care (01) | LOC: LABWHC1 14:21 | PROVIDERS: ATTEND Family Medicine | DX: F98.8 Other specified behavioral and emotional disorders with onset usually occurring in childhood and adolescence (principal) | CPT/HCPCS: 36415 ==

== ENCOUNTER → 2020-12-14 | Outpatient (CLI) | payer BC ==
--- NOTE | 2020-12-15 06:55 | US ---
EXAMINATION TYPE: US thyroid st tissue head/neck DATE OF EXAM: 12/14/2020 COMPARISON: NONE CLINICAL HISTORY: E04.1 thyroid nodule. f/u exam GLAND SIZE: Right Lobe: 3.8 x 0.9 x 1.7 cm Overall Parenchyma: homogenous Left Lobe: 4.7 x 2.1 x 2.3 cm Overall Parenchyma: heterogeneous Isthmus Thickness: 0.4 cm NODULES RIGHT: # of nodules measured on right: 0 LEFT: # of nodules measured on left: 1- previous biopsy 1. 3.3 X 1.9 x 1.8 cm, mid, mixed cystic and solid, isoechoic nodule, which is wider than tall, wit h smooth margins, without echogenic foci. Prior size: 3.6 x 1.6 x 1.9 cm ISTHMUS: # of nodules measured in the isthmus: 0 Bilateral neck scanned, no evidence of lymphadenopathy. IMPRESSION: Essentially stable nonspecific solid nodule left thyroid lobe.
== END | disposition home or self-care (01) ==
LOC: RADUSWWP 16:08
PROVIDERS: ATTEND Otolaryngology
DX: E04.1 Nontoxic single thyroid nodule (principal)
CPT/HCPCS: 76536

== ENCOUNTER → 2020-12-15 | Outpatient (CLI) | payer BC ==
--- NOTE | 2020-12-19 09:14 | MM ---
Reason for exam: screening (asymptomatic). Last mammogram was performed 3 years and 7 months ago. History: Patient is postmenopausal. Family history of breast cancer in paternal grandmother. Benign US right guided mammotome of the right breast, March 17, 2008. Benign right US cyst aspiration of the right breast, May 27, 2007. Benign US right core biopsy of the right breast, May 27, 2007. Took hormonal contraceptives for 3 years beginning at age 40. Physical Findings: A clinical breast exam by your physician is recommended on an annual basis and results should be correlated with mammographic findings. MG 3D Screening Mammo W/Cad Bilateral CC and MLO view(s) were taken. Prior study comparison: May 15, 2018, bilateral MR breast bilat wo/w con. June 25, 2013, bilateral MG screening mammo w CAD. The breast tissue is heterogeneously dense. This may lower the sensitivity of mammography. Previous mammotome biopsy in the right breast. No significant changes when compared with prior studies. ASSESSMENT: Benign, BI-RAD 2 RECOMMENDATION: Routine screening mammogram of both breasts in 1 year.
== END | disposition home or self-care (01) ==
LOC: RADMAMWWP 16:23
PROVIDERS: ATTEND Obstetrics & Gynecology Obstetrics
DX: Z12.31 Encounter for screening mammogram for malignant neoplasm of breast (principal); Z80.3 Family history of malignant neoplasm of breast; Z78.0 Asymptomatic menopausal state
CPT/HCPCS: 77063; 77067

== ENCOUNTER → 2021-02-09 | Outpatient (CLI) | payer BC ==
[2021-02-10 00:38] LABS: T4, Free (Free Thyroxine) 1.15 ng/dL (0.800-1.800)
== END | disposition home or self-care (01) ==
LOC: LABWHC1 12:14
PROVIDERS: ATTEND Otolaryngology
DX: R53.83 Other fatigue (principal)
CPT/HCPCS: 36415; 84439; 84443

== ENCOUNTER 2021-08-30 09:37 | Emergency (ER) | payer BC ==
[2021-08-30 09:48] VITALS: BP 162/102; PULSE 85; RESP 20; TEMP 98
[2021-08-30 11:32] LABS: Basophils % (A) 0 %; Eosinophils # (A) 0.2 k/uL (0-0.7); Eosinophils % (A) 2 %; HCT 39.1 % (34.0-46.0); HGB 13.2 gm/dL (11.4-16.0); Lymphocytes # (A) 1.8 k/uL (1.0-4.8); Lymphocytes % (A) 26 %; MCH 31.5 pg (25.0-35.0); MCHC 33.8 g/dL (31.0-37.0); MCV 93.2 fL (80.0-100.0); Mean Platelet Volume 6.9; Monocytes # (A) 0.3 k/uL (0-1.0); Monocytes % (A) 4 %; Neutrophils # (A) 4.4 k/uL (1.3-7.7); Neutrophils % (A) 63 %; Platelet Count 305 k/uL (150-450); RBC 4.19 m/uL (3.80-5.40); RDW 13.7 % (11.5-15.5)
[2021-08-30 11:46] LABS: ALT 24 U/L (4-34); AST 28 U/L (14-36); African American GFR (CKD) >90 (>60 ml/min/1.73 sqM); Alkaline Phosphatase 90 U/L (38-126); Anion Gap 4 mmol/L; Blood Urea Nitrogen 15 mg/dL (7-17); Calcium 8.7 mg/dL (8.4-10.2); Carbon Dioxide 29 mmol/L (22-30); Chloride 105 mmol/L (98-107); Glucose 104 mg/dL (74-99); Magnesium 2.1 mg/dL (1.6-2.3); Non-African American GFR(CKD) >90 (>60 ml/min/1.73 sqM); Sodium 138 mmol/L (137-145); Total Bilirubin 0.5 mg/dL (0.2-1.3)
--- NOTE | 2021-08-30 12:06 | XR ---
EXAMINATION TYPE: XR chest 2V DATE OF EXAM: 08/30/2021 COMPARISON: 10/07/2017 INDICATION: Short of breath TECHNIQUE: Frontal and lateral views of the chest are obtained. FINDINGS: The heart size is normal. The pulmonary vasculature is normal. The lungs are clear. IMPRESSION: 1. No acute pulmonary process.
--- NOTE | 2021-08-30 13:35 | US ---
EXAMINATION TYPE: US venous doppler duplex LE DATE OF EXAM: 08/30/2021 12:57 PM COMPARISON: NONE CLINICAL HISTORY: shortness of breath. Bilateral leg swelling SIDE PERFORMED: Bilateral TECHNIQUE: The lower extremity deep venous system is examined utilizing real time linear array sonog polo with graded compression, doppler sonography and color-flow sonography. VESSELS IMAGED: Common Femoral Vein Deep Femoral Vein Greater Saphenous Vein * Femoral Vein Popliteal Vein Small Saphenous Vein * Proximal Calf Veins (* superficial vessels) There is normal flow, compressibility, vascular waveforms Right Leg: Appears negative for DVT Left Leg: Appears negative for DVT IMPRESSION: No evident deep venous thrombosis within the lower extremities from the level of the knee s centrally
--- NOTE | 2021-08-30 14:01 | ED ---
General Adult HPI - General Chief complaint: Extremity Problem,Nontraumatic Stated complaint: Leg Swelling/sent by urgent care Time Seen by Provider: 08/30/21 11:00 Source: patient, RN notes reviewed, old records reviewed Mode of arrival: ambulatory Limitations: no limitations - History of Present Illness Initial comments: Patient is a 56-year-old female with past medical history remarkable for thyroid disorder presents emergency Department complaining of a 5 day history of worsening lower extremity edema. It is equal bilaterally. She has noticed that is causing some intermittent muscle cramping. Denies any numbness or tingling. Denies any weakness. His no cardiac history. Denies any history of blood clots in herself or family members. No recent long distance travel. Denies any shortness of breath at rest but does endorse may be some mild exertional shortness of breath a few days ago. Denies any orthopnea otherwise, PND. No abdominal distention. No cough. No other acute complaints at this time. Denies chest pain. Presents for further evaluation at this time. - Related Data Home Medications Medication Instructions Recorded Confirmed Methylphenidate HCl [Ritalin] 10 mg PO TID PRN 02/19/16 03/15/19 Celecoxib [CeleBREX] 200 mg PO DAILY 10/07/17 03/15/19 Ibuprofen [Motrin Ib] 400 mg PO Q6H PRN 10/07/17 03/15/19 Multivitamin,Therapeutic [Thera] 1 tab PO DAILY 10/07/17 03/15/19 ALPRAZolam [Xanax] 0.5 mg PO BID PRN 02/04/19 03/15/19 Turmeric Root Extract [Turmeric] 538 mg PO DAILY 02/04/19 03/15/19 buPROPion XL [Wellbutrin Xl] 450 mg PO DAILY 02/04/19 03/15/19 Cyanocobalamin (Vitamin B-12) 1,000 mcg PO DAILY 03/08/19 03/15/19 [Vitamin B-12] Levothyroxine Sodium [Synthroid] 50 mcg PO DAILY 03/08/19 03/15/19 Sea Kelp 1 tab PO DAILY 03/08/19 03/15/19 diphenhydrAMINE [Benadryl] 25 mg PO HS PRN 03/10/19 03/15/19 Previous Rx's Medication Instructions Recorded Furosemide [Lasix] 20 mg PO DAILY #14 tablet 08/30/21 Allergies Allergy/AdvReac Type Severity Reaction Status Date / Time codeine AdvReac Itching Verified 08/30/21 09:48 Review of Systems ROS Statement: Those systems with pertinent positive or pertinent negative responses have been documented in the HPI. Review of Systems: CONST: Denies fever EYES: Denies blurry vision ENT: Denies nasal congestion C/V: Denies Chest pain RESP: Denies shortness of breath GI: Denies abdominal pain : Denies dysuria SKIN: Denies rash. MSK: Endorses lower extremity swelling. NEURO: Denies headache ROS Other: All systems not noted in ROS Statement are negative. Past Medical History Past Medical History: Thyroid Disorder Additional Past Medical History / Comment(s): arthritis History of Any Multi-Drug Resistant Organisms: None Reported Past Surgical History: Cholecystectomy, Tubal Ligation Additional Past Surgical History / Comment(s): LEFT THYROID BIOPSY. Past Anesthesia/Blood Transfusion Reactions: No Reported Reaction Past Psychological History: Depression Past Alcohol Use History: Occasional, Rare - Past Family History Mother Family Medical History: Cancer Additional Family Medical History / Comment(s): mother ovarian, father colon, son bone cancer Father Family Medical History: Cancer Additional Family Medical History / Comment(s): COLON CANCER Son(s) Family Medical History: Cancer Additional Family Medical History / Comment(s): BONE CANCER. General Exam - General Exam Comments Initial Comments: General: Appears in no acute distress. HEAD: Normal with no signs of head trauma. EYES: PERRLA, EOMI, conjunctiva normal, no discharge. ENT: Hearing grossly intact, normal oropharynx. RESPIRATORY: Clear breath sounds bilaterally. No wheezes, rales, or rhonchi. C/V: Regular rate and rhythm. S1 and S2 auscultated. Patient has bilateral lower extremity pitting edema, approximately 1-2+. It is symmetrical. Peripheral pulses are intact. ABD: Abd is soft, nontender, nondistended EXT: Normal range of motion, no obvious deformity SKIN: No rashes or lesions observed on exposed skin. NEURO: Alert and oriented 4. Limitations: no limitations Course Vital Signs 08/30/21 09:44 Temperature 98.0 F Pulse Rate 85 Respiratory 20 Rate Blood Pressure 162/102 O2 Sat by Pulse 97 Oximetry Medical Decision Making - Medical Decision Making Based on the patient's presentation and physical exam, I'm concerned for likely dependent edema. Cannot necessarily rule out heart failure or DVT at this time. Therefore we will obtain a screening EKG, BNP, basic labs, screening d-dimer, as well as bilateral lower extremity duplexes and a chest x-ray. She was in agreement with this plan. EKG shows no signs of acute ischemia. Chest x-ray shows no acute cardiopulmonary process. He has duplexes showed no signs of DVT. Laboratory studies were unremarkable including a d-dimer within normal limits and a BNP within normal limits. Vital signs are within normal limits and stable. I did discuss results with her. She is likely experiencing dependent edema. She cannot follow-up with her PCP for multiple weeks due to availability. I will provide her with a prescription of Lasix 20 mg daily, and instructed her to take it at most, every other day as I cannot monitor her symptoms. She can monitor her leg swelling as well as her blood pressure at home. Recommended return if any worsening symp toms. Also recommended to continue elevating the legs. She was in agreement this plan. I will provide the patient with a prescription for Lasix 20 mg. I instructed the patient to follow up with their PCP in the next 1-3 days. . I explained that the patient should return to the emergency department if they experience any worsening symptoms. Strict return precautions were discussed with the patient. The patient expressed understanding of these instructions. I answered all questions that the patient had. The patient was discharged home in good condition with their prescriptions and follow up information. - Lab Data Result diagrams: 08/30/21 11:08 08/30/21 11:08 Lab Results 08/30/21 08/30/21 08/30/21 Range/Units 11:08 11:08 11:08 WBC 7.0 (3.8-10.6) k/uL RBC 4.19 (3.80-5.40) m/uL Hgb 13.2 (11.4-16.0) gm/dL Hct 39.1 (34.0-46.0) % MCV 93.2 (80.0-100.0) fL MCH 31.5 (25.0-35.0) pg MCHC 33.8 (31.0-37.0) g/dL RDW 13.7 (11.5-15.5) % Plt Count 305 (150-450) k/uL MPV 6.9 Neutrophils % 63 % Lymphocytes % 26 % Monocytes % 4 % Eosinophils % 2 % Basophils % 0 % Neutrophils # 4.4 (1.3-7.7) k/uL Lymphocytes # 1.8 (1.0-4.8) k/uL Monocytes # 0.3 (0-1.0) k/uL Eosinophils # 0.2 (0-0.7) k/uL Basophils # 0.0 (0-0.2) k/uL D-Dimer (<0.60) mg/L FEU Sodium 138 (137-145) mmol/L Potassium 4.0 (3.5-5.1) mmol/L Chloride 105 (98-107) mmol/L Carbon Dioxide 29 (22-30) mmol/L Anion Gap 4 mmol/L BUN 15 (7-17) mg/dL Creatinine 0.74 (0.52-1.04) mg/dL Est GFR (CKD-EPI)AfAm >90 (>60 ml/min/1.73 sqM) Est GFR (CKD-EPI)NonAf >90 (>60 ml/min/1.73 sqM) Glucose 104 H (74-99) mg/dL Calcium 8.7 (8.4-10.2) mg/dL Magnesium 2.1 (1.6-2.3) mg/dL Total Bilirubin 0.5 (0.2-1.3) mg/dL AST 28 (14-36) U/L ALT 24 (4-34) U/L Alkaline Phosphatase 90 (38-126) U/L NT-Pro-B Natriuret Pep 66 pg/mL Total Protein 7.0 (6.3-8.2) g/dL Albumin 4.0 (3.5-5.0) g/dL 08/30/21 Range/Units 11:43 WBC (3.8-10.6) k/uL RBC (3.80-5.40) m/uL Hgb (11.4-16.0) gm/dL Hct (34.0-46.0) % MCV (80.0-100.0) fL MCH (25.0-35.0) pg MCHC (31.0-37.0) g/dL RDW (11.5-15.5) % Plt Count (150-450) k/uL MPV Neutrophils % % Lymphocytes % % Monocytes % % Eosinophils % % Basophils % % Neutrophils # (1.3-7.7) k/uL Lymphocytes # (1.0-4.8) k/uL Monocytes # (0-1.0) k/uL Eosinophils # (0-0.7) k/uL Basophils # (0-0.2) k/uL D-Dimer 0.48 (<0.60) mg/L FEU Sodium (137-145) mmol/L Potassium (3.5-5.1) mmol/L Chloride (98-107) mmol/L Carbon Dioxide (22-30) mmol/L Anion Gap mmol/L BUN (7-17) mg/dL Creatinine (0.52-1.04) mg/dL Est GFR (CKD-EPI)AfAm (>60 ml/min/1.73 sqM) Est GFR (CKD-EPI)NonAf (>60 ml/min/1.73 sqM) Glucose (74-99) mg/dL Calcium (8.4-10.2) mg/dL Magnesium (1.6-2.3) mg/dL Total Bilirubin (0.2-1.3) mg/dL AST (14-36) U/L ALT (4-34) U/L Alkaline Phosphatase (38-126) U/L NT-Pro-B Natriuret Pep pg/mL Total Protein (6.3-8.2) g/dL Albumin (3.5-5.0) g/dL - EKG Data -: EKG Interpreted by Me EKG Comments: 12-lead Electrocardiogram Interpretation Note EKG was reviewed and interpreted by myself. 12-lead ECG performed at 1138 is interpreted by me as revealing normal sinus rhythm at a rate of 66 beats per minute. [place] is normal. [place] interval is 186 ms, QRS duration is 94 ms, QTc is 393 ms.. There were no ST or T wave abnormalities to suggest myocardial ischemia or injury. R wave progression across the precordium was satisfactory. By my interpretation this EKG is non-diagnostic for acute ischemia. Disposition Clinical Impression: Dependent edema Disposition: HOME SELF-CARE Condition: Good Instructions (If sedation given, give patient instructions): Lymphedema (ED) Additional Instructions: You have DEPENDENT EDEMA. Follow up with PCP. Take Lasix as instructed and monitor blood pressures. Prescriptions: Furosemide [Lasix] 20 mg PO DAILY #14 tablet Is patient prescribed a controlled substance at d/c from ED?: No Referrals: Nabeel Collins DO [Primary Care Provider] - 1-2 days Time of Disposition: 13:30
== END 2021-08-30 14:31 | disposition home or self-care (01) ==
LOC: EC 09:37
DX: R60.0 Localized edema (principal); Z88.5 Allergy status to narcotic agent
CPT/HCPCS: 36415; 71046; 80053; 83735; 83880; 85025; 85379; 93005; 93970

== ENCOUNTER 2021-09-10 08:18 | Emergency (ER) | payer BC ==
[2021-09-10 08:31] VITALS: RESP 18
--- NOTE | 2021-09-10 09:14 | ED ---
General Adult HPI - General Chief complaint: Extremity Problem,Nontraumatic Stated complaint: Possible blood clot Time Seen by Provider: 09/10/21 08:55 Source: patient Mode of arrival: ambulatory Limitations: no limitations - History of Present Illness Initial comments: 56-year-old female past medical history of thyroid disorder presents to the emergency department for continued lower extremity swelling. Patient was evaluated in the emergency department on August 30 for same complaint. Laboratory studies were conducted an ultrasound of the lower extremities was performed. Patient was started on 20 mg of Lasix every other day for her lower externally swelling. Increase her fluid intake and has been elevating her feet. Does report that she has been working in the yard more so than normal. This morning the patient awoke and felt a lump behind her left calf which alarmed her. She doesn't appointment to see her primary care doctor however this is not until Friday area and she also began having increasing cramping in her posterior left thigh. Denies history of DVT or PE. No personal history of cancer. No personal history of clotting disorder. She denies any chest pain or shortness of breath. No fevers. No lower extremity trauma. Has been taking her thyroid medication as directed. No other alleviating, precipitating or modifying factors - Related Data Home Medications Medication Instructions Recorded Confirmed Methylphenidate HCl [Ritalin] 10 mg PO TID PRN 02/19/16 09/10/21 Celecoxib [CeleBREX] 200 mg PO DAILY 10/07/17 09/10/21 buPROPion XL [Wellbutrin Xl] 300 mg PO DAILY 02/04/19 09/10/21 [place] 1 tab PO DAILY 03/08/19 09/10/21 Cholecalciferol [Vitamin D3 (25 25 mcg PO DAILY 09/10/21 09/10/21 Mcg = 1000 Iu)] Furosemide [Lasix] 20 mg PO Q48H 09/10/21 09/10/21 Levothyroxine Sodium [Synthroid] 75 mcg PO DAILY 09/10/21 09/10/21 Magnesium Oxide 400 mg PO DAILY 09/10/21 09/10/21 Previous Rx's Medication Instructions Recorded Furosemide [Lasix] 20 mg PO DAILY #7 tablet 09/10/21 Allergies Allergy/AdvReac Type Severity Reaction Status Date / Time codeine AdvReac "Itching Verified 09/13/21 23:29 after taking for a few days" Review of Systems ROS Statement: Those systems with pertinent positive or pertinent negative responses have been documented in the HPI. ROS Other: All systems not noted in ROS Statement are negative. Past Medical History Past Medical History: Thyroid Disorder Additional Past Medical History / Comment(s): arthritis History of Any Multi-Drug Resistant Organisms: None Reported Past Surgical History: Cholecystectomy, Tubal Ligation Additional Past Surgical History / Comment(s): LEFT THYROID BIOPSY. Past Anesthesia/Blood Transfusion Reactions: No Reported Reaction Past Psychological History: Depression Smoking Status: Never smoker Past Alcohol Use History: Occasional, Rare - Past Family History Mother Family Medical History: Cancer Additional Family Medical History / Comment(s): mother ovarian, father colon, son bone cancer Father Family Medical History: Cancer Additional Family Medical History / Comment(s): COLON CANCER Son(s) Family Medical History: Cancer Additional Family Medical History / Comment(s): BONE CANCER. General Exam Limitations: no limitations General appearance: alert, in no apparent distress Head exam: Present: atraumatic, normocephalic, normal inspection Eye exam: Present: normal appearance, PERRL, EOMI. Absent: scleral icterus, conjunctival injection, periorbital swelling ENT exam: Present: normal exam, mucous membranes moist Neck exam: Present: normal inspection. Absent: tenderness, meningismus, lymphadenopathy Respiratory exam: Present: normal lung sounds bilaterally. Absent: respiratory distress, wheezes, rales, rhonchi, stridor Cardiovascular Exam: Present: regular rate, normal rhythm, normal heart sounds. Absent: systolic murmur, diastolic murmur, rubs, gallop, clicks GI/Abdominal exam: Present: soft, normal bowel sounds. Absent: distended, tenderness, guarding, rebound, rigid Extremities exam: Present: normal inspection, full ROM, normal capillary refill, pedal edema (left leg, 1+. ). Absent: tenderness, joint swelling, calf tenderness Back exam: Present: normal inspection Neurological exam: Present: alert, oriented X3, CN II-XII intact Psychiatric exam: Present: normal affect, normal mood Skin exam: Present: warm, dry, intact, normal color. Absent: rash Course Vital Signs 09/10/21 09/10/21 08:27 11:10 Temperature 98.0 F 97.8 F Pulse Rate 94 88 Respiratory 18 18 Rate Blood Pressure 140/90 132/78 O2 Sat by Pulse 100 98 Oximetry Medical Decision Making - Medical Decision Making Upon arrival patient was placed in room 5. Thorough history and physical exam was performed. I did repeat an ultrasound of the left lower extremity due to her new complaints. No signs of DVT. I did repeat laboratory studies. Thyroid study is normal. Magnesium and potassium within normal limits. Results are d iscussed patient. Did recommend continued usage of Lasix. I will prescribe the patient additional doses. She is to also wear compression stockings. She has a follow-up appointment with her primary care doctor on Friday. Instructed to return for any new or worsening symptoms. Patient agreed and was discharged home in stable condition - Lab Data Result diagrams: 09/10/21 09:26 09/10/21 09: Lab Results 09/10/21 09/10/21 09/10/21 Range/Units 09:26 09:26 09:26 WBC 6.2 (3.8-10.6) k/uL RBC 4.03 (3.80-5.40) m/uL Hgb 12.5 (11.4-16.0) gm/dL Hct 37.4 (34.0-46.0) % MCV 92.9 (80.0-100.0) fL MCH 31.1 (25.0-35.0) pg MCHC 33.4 (31.0-37.0) g/dL RDW 13.6 (11.5-15.5) % Plt Count 273 (150-450) k/uL MPV 6.9 Neutrophils % 62 % Lymphocytes % 25 % Monocytes % 5 % Eosinophils % 3 % Basophils % 1 % Neutrophils # 3.9 (1.3-7.7) k/uL Lymphocytes # 1.6 (1.0-4.8) k/uL Monocytes # 0.3 (0-1.0) k/uL Eosinophils # 0.2 (0-0.7) k/uL Basophils # 0.0 (0-0.2) k/uL PT 10.5 (9.0-12.0) sec INR 1.0 (<1.2) APTT 28.2 (22.0-30.0) sec Sodium 137 (137-145) mmol/L Potassium 3.9 (3.5-5.1) mmol/L Chloride 108 H (98-107) mmol/L Carbon Dioxide 23 (22-30) mmol/L Anion Gap 6 mmol/L BUN 18 H (7-17) mg/dL Creatinine 0.72 (0.52-1.04) mg/dL Est GFR (CKD-EPI)AfAm >90 (>60 ml/min/1.73 sqM) Est GFR (CKD-EPI)NonAf >90 (>60 ml/min/1.73 sqM) Glucose 115 H (74-99) mg/dL Calcium 8.4 (8.4-10.2) mg/dL Magnesium 1.9 (1.6-2.3) mg/dL Total Bilirubin 0.4 (0.2-1.3) mg/dL AST 25 (14-36) U/L ALT 20 (4-34) U/L Alkaline Phosphatase 76 (38-126) U/L Total Protein 6.7 (6.3-8.2) g/dL Albumin 3.8 (3.5-5.0) g/dL TSH 0.608 (0.465-4.680) mIU/L Disposition Clinical Impression: Peripheral edema Disposition: HOME SELF-CARE Condition: Stable Instructions (If sedation given, give patient instructions): Edema (ED) Additional Instructions: Take the Lasix daily. Wear compression stockings. Follow up with your primary care at your scheduled appointment on Friday Prescriptions: Furosemide [Lasix] 20 mg PO DAILY #7 tablet Is patient prescribed a controlled substance at d/c from ED?: No Referrals: Nabeel Collins DO [Primary Care Provider] - 1-2 days Time of Disposition: 11:07
[2021-09-10 09:42] LABS: Basophils % (A) 1 %; Eosinophils # (A) 0.2 k/uL (0-0.7); Eosinophils % (A) 3 %; HCT 37.4 % (34.0-46.0); HGB 12.5 gm/dL (11.4-16.0); Lymphocytes # (A) 1.6 k/uL (1.0-4.8); Lymphocytes % (A) 25 %; MCH 31.1 pg (25.0-35.0); MCHC 33.4 g/dL (31.0-37.0); MCV 92.9 fL (80.0-100.0); Mean Platelet Volume 6.9; Monocytes # (A) 0.3 k/uL (0-1.0); Monocytes % (A) 5 %; Neutrophils # (A) 3.9 k/uL (1.3-7.7); Neutrophils % (A) 62 %; Platelet Count 273 k/uL (150-450); RBC 4.03 m/uL (3.80-5.40); RDW 13.6 % (11.5-15.5); WBC 6.2 k/uL (3.8-10.6)
[2021-09-10 09:52] LABS: ALT 20 U/L (4-34); AST 25 U/L (14-36); African American GFR (CKD) >90 (>60 ml/min/1.73 sqM); Albumin 3.8 g/dL (3.5-5.0); Alkaline Phosphatase 76 U/L (38-126); Anion Gap 6 mmol/L; Blood Urea Nitrogen 18 mg/dL (7-17); Calcium 8.4 mg/dL (8.4-10.2); Carbon Dioxide 23 mmol/L (22-30); Chloride 108 mmol/L (98-107); Glucose 115 mg/dL (74-99); Magnesium 1.9 mg/dL (1.6-2.3); Non-African American GFR(CKD) >90 (>60 ml/min/1.73 sqM); Potassium 3.9 mmol/L (3.5-5.1); Sodium 137 mmol/L (137-145); Total Bilirubin 0.4 mg/dL (0.2-1.3); Total Protein 6.7 g/dL (6.3-8.2)
[2021-09-10 09:56] LABS: Partial Thromboplastin Time 28.2 sec (22.0-30.0); Prothrombin Time 10.5 sec (9.0-12.0)
--- NOTE | 2021-09-10 10:06 | US ---
EXAMINATION TYPE: US venous doppler duplex LE LT DATE OF EXAM: 09/10/2021 9:45 AM COMPARISON: US dated 08/30/2021 CLINICAL HISTORY: left leg pain, swelling. SIDE PERFORMED: Left TECHNIQUE: The lower extremity deep venous system is examined utilizing real time linear array sonog polo with graded compression, doppler sonography and color-flow sonography. VESSELS IMAGED: Common Femoral Vein Deep Femoral Vein Greater Saphenous Vein * Femoral Vein Popliteal Vein Small Saphenous Vein * Proximal Calf Veins (* superficial vessels) Left Leg: Negative for DVT Patient has palpable area left posterior calf, scanning was performed directly over area as pointed o ut by patient, and no definitely abnormality noted. IMPRESSION: No evidence of DVT at this time.
[2021-09-10 11:11] VITALS: BP 132/78; PULSE 88; TEMP 97.8
== END 2021-09-10 11:10 | disposition home or self-care (01) ==
LOC: EC 08:18
DX: R60.9 Edema, unspecified (principal); E07.9 Disorder of thyroid, unspecified; Z79.890 Hormone replacement therapy; Z88.5 Allergy status to narcotic agent
CPT/HCPCS: 36415; 80053; 83735; 84443; 85025; 85610; 85730; 99284

== ENCOUNTER → 2021-12-31 | Outpatient (CLI) | payer BC ==
--- NOTE | 2021-12-31 13:03 | US ---
EXAMINATION TYPE: US thyroid st tissue head/neck DATE OF EXAM: 12/31/2021 COMPARISON: There are ultrasound 12/14/2020 CLINICAL HISTORY: E04.1 Thyroid nodule.Thyroid nodules. GLAND SIZE: Right Lobe: 5.4 x 1.3 x 1.1 cm Overall Parenchyma: homogenous Left Lobe: 5.6 x 2.2 x 2.3 cm Overall Parenchyma: homogeneous Isthmus Thickness: .3 cm NODULES RIGHT: # of nodules measured on right: 0 LEFT: # of nodules measured on left: 1 1. 3.7 X 1.7 x 1.8 cm, mid , solid or almost completely solid, hypoechoic nodule, which is wider th an tall, with smooth margins, without echogenic foci. TR-4. Prior size: 3.3 x 1.9 x 1.8 cm ISTHMUS: # of nodules measured in the isthmus: 0 Bilateral neck scanned, no evidence of lymphadenopathy. IMPRESSION: Stable nonspecific solid nodule in the left thyroid lobe.
== END | disposition home or self-care (01) ==
LOC: RADUSWWP 12:16
PROVIDERS: ATTEND Otolaryngology
DX: E04.1 Nontoxic single thyroid nodule (principal)
CPT/HCPCS: 76536

== ENCOUNTER → 2023-01-03 | Outpatient (CLI) | payer BC ==
--- NOTE | 2023-01-03 13:46 | US ---
EXAMINATION TYPE: US thyroid st tissue head/neck DATE OF EXAM: 01/03/2023 COMPARISON: Multiple thyroid ultrasounds most recent 12/31/2021 CLINICAL INDICATION: Female, 57 years old with history of E04.1 NONTOXIC SINGLE THYROID NODULE; GLAND SIZE: Right Lobe: 4.5 x 1.3 x 1.1 cm Overall Parenchyma: homogeneous Left Lobe: 4.9 x 2.2 x 2.2 cm Overall Parenchyma: homogeneous Isthmus Thickness: 0.3 cm NODULES RIGHT: # of nodules measured on right: 0 LEFT: # of nodules measured on left: 1 1. 3.6 X 1.8 x 1.8 cm, mid, solid or almost completely solid, isoechoic nodule, which is wider than tall, with ill-defined margins, without echogenic foci. Previous biopsy. Prior size: 3.7 x 1.7 x 1.8 cm ISTHMUS: # of nodules measured in the isthmus: 0 Bilateral neck scanned, no evidence of lymphadenopathy. IMPRESSION: Stable dominant nodule within the left thyroid lobe which has been previously biopsied. No new or enl arging thyroid nodules.
== END | disposition home or self-care (01) ==
LOC: RADUSWWP 12:54
PROVIDERS: ATTEND Otolaryngology
DX: E04.1 Nontoxic single thyroid nodule (principal)
CPT/HCPCS: 76536

== ENCOUNTER → 2023-01-03 | Outpatient (CLI) | payer BC ==
--- NOTE | 2023-01-06 09:12 | MM ---
Reason for Exam: Screening (asymptomatic). Last mammogram was performed 2 year(s) and 1 month(s) ago. Patient History: Menarche at age 12. First Full-Term at age 18. Right ovary removed at age 53. Hysterectomy at age 53. Postmenopausal. Patient has history of breast feeding. Hormonal Contraceptives for 3 years from age 40 until age 43. 03/17/2008, Benign Core Biopsy on the right side. 05/27/2007, Benign Cyst Aspiration on the right side. 05/27/2007, Benign Core Biopsy on the right side. Paternal grandmother had breast cancer. Risk Values: Abigail 5 year model risk: 1.4%. NCI Lifetime model risk: 8.5%. Prior Study Comparison: 07/08/2013 Left Diagnostic Mammogram, [facility]. 05/08/2017 Bilateral Diagnostic Mammogram, [facility]. 12/15/2020 Bilateral Screening Mammogram, [facility]. Tissue Density: The breast tissue is heterogeneously dense. This may lower the sensitivity of mammography. Findings: Analyzed By CAD. New asymmetric density at the approximate 12:00 position right breast 9 cm from the nipple. Additional views are recommended. No suspicious calcifications are seen within either breast. Overall Assessment: Incomplete: need additional imaging evaluation, BI-RAD 0 Management: Diagnostic Mammogram of the left breast. . Patient should continue monthly self-breast exams. A clinical breast exam by your physician is recommended on an annual basis. This exam should not preclude additional follow-up of suspicious palpable abnormalities. Note on Abigail scores and lifetime risk: 1. A Abigail score greater than 3% is considered moderate risk. If this is the case, consider specialist referral to assess eligibility for a risk reducing agent. 2. If overall lifetime risk for the development of breast cancer is 20% or higher, the patient may qualify for future screening with alternating mammogram and breast MRI. Electronically signed and approved by: Andrés Warner M.D. Radiologis
== END | disposition home or self-care (01) ==
LOC: RADMAMWWP 12:53
PROVIDERS: ATTEND Obstetrics & Gynecology Obstetrics
DX: Z12.31 Encounter for screening mammogram for malignant neoplasm of breast (principal); Z78.0 Asymptomatic menopausal state; Z80.3 Family history of malignant neoplasm of breast
CPT/HCPCS: 77063; 77067

== ENCOUNTER → 2023-01-10 | Outpatient (CLI) | payer BC ==
--- NOTE | 2023-01-10 11:32 | MM ---
Reason for Exam: Follow-up at short interval from prior study. Last screening mammogram was performed less than 1 month ago. Patient History: Menarche at age 12. First Full-Term at age 18. Right ovary removed at age 53. Hysterectomy at age 53. Postmenopausal. Patient has history of breast feeding. Hormonal Contraceptives for 3 years from age 40 until age 43. 03/17/2008, Benign Core Biopsy on the right side. 05/27/2007, Benign Cyst Aspiration on the right side. 05/27/2007, Benign Core Biopsy on the right side. Paternal grandmother had breast cancer. Risk Values: Abigail 5 year model risk: 1.4%. NCI Lifetime model risk: 8.5%. Prior Study Comparison: 05/08/2017 Bilateral Diagnostic Mammogram, [facility]. 12/15/2020 Bilateral Screening Mammogram, [facility]. 01/03/2023 Bilateral MG 3D screening mammo w/cad, [facility]. Tissue Density: Left: The breast tissue is heterogeneously dense. This may lower the sensitivity of mammography. Findings: Analyzed By CAD. There is persistent focal asymmetry right breast 7-8 cm from the nipple on CC and MLO view respectively. This is felt to be in the upper outer quadrant. Measures up to 15 mm. No new suspicious masses, calcifications or distortions. Overall Assessment: Incomplete: need additional imaging evaluation, BI-RAD 0 Management: Diagnostic Breast Ultrasound of the left breast. Results were given to the patient verbally at the time of exam. Patient should continue monthly self-breast exams. A clinical breast exam by your physician is recommended on an annual basis. This exam should not preclude additional follow-up of suspicious palpable abnormalities. Note on Abigail scores and lifetime risk: 1. A Abigail score greater than 3% is considered moderate risk. If this is the case, consider specialist referral to assess eligibility for a risk reducing agent. 2. If overall lifetime risk for the development of breast cancer is 20% or higher, the patient may qualify for future screening with alternating mammogram and breast MRI. Electronically signed and approved by: Simba Cordova DO
--- NOTE | 2023-01-10 12:36 | USB ---
Reason for Exam: Additional evaluation requested from abnormal screening. Patient History: Menarche at age 12. First Full-Term at age 18. Right ovary removed at age 53. Hysterectomy at age 53. Postmenopausal. Patient has history of breast feeding. Hormonal Contraceptives for 3 year from age 40 until age 43. 03/17/2008, Benign Core Biopsy on the right side. 05/27/2007, Benign Cyst Aspiration on the right side. 05/27/2007, Benign Core Biopsy on the right side. Paternal grandmother had breast cancer. Risk Values: Abigail 5 year model risk: 1.4%. NCI Lifetime model risk: 8.5%. Technique: Method: Targeted. Prior Study Comparison: 05/08/2017 Bilateral Diagnostic Mammogram, [facility]. 12/15/2020 Bilateral Screening Mammogram, [facility]. 01/03/2023 Bilateral MG 3D screening mammo w/cad, [facility]. Findings: The upper section of the breast of the right breast, the axilla of the right breast and the retroareolar of the right breast were scanned. Technique utilized:US breast workup limited RT Image; Ultrasound imaging of: Area of concern, retroareolar region and axilla. 11-1 o'clock was scanned. At 12:00 7 cm the nipple is a irregular ill-defined area of soft tissue which is felt to correlate with mammography. There is no biopsy clip in this general area. This is not felt to been recently biopsied based on biopsy clip placement on mammography. Technique utilized:US breast workup limited RT Image; Ultrasound imaging of: Area of concern, retroareolar region and axilla. 11-1 o'clock was scanned. At 12:00 7 cm the nipple is a irregular ill-defined area of soft tissue which is felt to correlate with mammography. There is no biopsy clip in this general area. This is not felt to been recently biopsied based on biopsy clip placement on mammography. Area measures up to 1.6 x 1.1 cm. Overall Assessment: Suspicious, BI-RAD 4 Management: Ultrasound Core Biopsy of the right breast. A clinical breast exam by your physician is recommended on an annual basis and results should be correlated with mammographic findings. This exam should not preclude additional follow-up of suspicious palpable abnormalities. Results were given to the patient verbally at the time of exam. Electronically signed and approved by: Simba Cordova DO
== END | disposition home or self-care (01) ==
LOC: RADMAMWWP 10:29
PROVIDERS: ATTEND Obstetrics & Gynecology Obstetrics
DX: R92.331 Mammographic heterogeneous density, right breast (principal); Z78.0 Asymptomatic menopausal state; Z80.3 Family history of malignant neoplasm of breast
CPT/HCPCS: 77061; 77065

== ENCOUNTER → 2023-01-29 | Day surgery (SDC) | payer BC | LOC: RADUSWWP 10:13 | PROVIDERS: ATTEND Surgery | DX: C50.911 Malignant neoplasm of unspecified site of right female breast (principal); Z17.0 Estrogen receptor positive status [ER+] | CPT/HCPCS: 88305; 88342; 88341; 77065; 19083; A4648 ==

== ENCOUNTER → 2023-07-18 | Outpatient (CLI) | payer BC ==
--- NOTE | 2023-07-24 16:54 | BD ---
EXAMINATION TYPE: Axial Bone Density DATE OF EXAM: 07/18/2023 CLINICAL HISTORY: 58 years old Female. ICD-10 CODE: C50.811 MALIGNANT LONI OF OVRLP Height: 67" Weight: 245lbs FRAX RISK QUESTIONS: Alcohol (3 or more units per day): No Family History (Parent hip fracture): No Glucocorticoids (More than 3mos): No (Ex: prednisone, prednisolone, methylprednisolone, dexamethasone, and hydrocortisone). History of Fracture in Adulthood: No Secondary Osteoporosis: 1. Type 1 Diabetes: No 2. Hyperthyroidism: No 3. Menopause before 45: No 4. Malnutrition: No 5. Chronic liver disease: No Rheumatoid Arthritis: No Current Tobacco Use: No RISK FACTORS HISTORY OF: Hip Fracture (Right/Left): No Spine Fracture: No History of Wrist Fracture: No Surgery to Spine/Hip(right/left)/Wrist (right/left): No MEDICATIONS: Thyroid Medications: Yes Which medication: Levothyroxine How Long: Couple of years Osteoporosis Medications: No EXAM MEASUREMENTS: Bone mineral densitometry was performed using the [employer] System. Bone mineral density as measured about the Lumbar spine is: ----- L1-L4(G/cm2): 1.409 T Score Values are as follows: ----- L1: 1.3 ----- L2: 1.5 ----- L3: 1.8 ----- L4: 2.6 ----- L1-L4: 1.9 Z Score Values are as follows: ----- L1: 1.2 ----- L2: 1.4 ----- L3: 1.7 ----- L4: 2.5 ----- L1-L4: 1.8 Baseline @MPH Bone mineral density about the R hip (g/cm2): 1.182 Bone mineral density about the L hip (g/cm2): 1.185 T Score values are as follows: -----R Neck: 0.7 -----L Neck: 0.3 -----R Total: 1.4 -----L Total: 1.4 Z Score values are as follows: -----R Neck: 1.1 -----L Neck: 0.7 -----R Total: 1.4 -----L Total: 1.4 Baseline @MPH FRAX%s: The graph provided illustrates a 5.1% chance for a major osteoporotic fx and a 0.1% chance fo r the hips probability for fx in 10 years time. IMPRESSION: Normal (Values between +1 and -1 indicate normal bone mass). Consider repeating this study in 5 year s or sooner if there is some new clinical indication. NOTE: T-SCORE=SD OF THE YOUNG ADULT MEAN.
== END | disposition home or self-care (01) ==
LOC: RADBDWWP 09:12
PROVIDERS: ATTEND Internal Medicine Hematology & Oncology
DX: C50.811 Malignant neoplasm of overlapping sites of right female breast (principal); F90.0 Attention-deficit hyperactivity disorder, predominantly inattentive type; E06.3 Autoimmune thyroiditis; Z15.09 Genetic susceptibility to other malignant neoplasm
CPT/HCPCS: 77080

== ENCOUNTER → 2023-07-23 | Outpatient (CLI) | payer BC ==
--- NOTE | 2023-07-23 13:01 | XR ---
EXAMINATION TYPE: XR cervical spine limited DATE OF EXAM: 07/23/2023 COMPARISON: NONE HISTORY: Pain TECHNIQUE: Four views are submitted. FINDINGS: The odontoid is intact. There are no compression deformities. The prevertebral soft tissue structur es are within normal limits. Mild to moderate hypertrophic and degenerative disc disease most marked C5-C6 with posterior spondylosis. Straightening of the cervical spine. IMPRESSION: 1. Multilevel degenerative disc disease most marked at C5-6 and C6-C7. There is posterior spondylosis . If concern for disc herniation or canal stenosis consider MRI follow-up.
== END | disposition home or self-care (01) ==
LOC: RADXRMAIN 12:34
PROVIDERS: ATTEND Family Medicine
DX: M50.122 Cervical disc disorder at C5-C6 level with radiculopathy (principal); M47.812 Spondylosis without myelopathy or radiculopathy, cervical region
CPT/HCPCS: 72040

== ENCOUNTER 2024-05-19 12:21 | Emergency (ER) | payer BC ==
[2024-05-19 12:28] VITALS: RESP 18; TEMP 97.6
--- NOTE | 2024-05-19 12:47 | ED ---
Abdominal Pain HPI - General Chief Complaint: Abdominal Pain Stated Complaint: abd pain Time Seen by Provider: 05/19/24 12:45 Source: patient, EMS, RN notes reviewed Mode of arrival: EMS Limitations: no limitations - History of Present Illness Initial Comments: 59-year-old female presenting for epigastric pain x 2 hours. States she began to experience diarrhea last night and this morning. Reports a intermittent sharp pain in the epigastric area. States she has a history of a cholecystectomy and hysterectomy. States this pain feels similar to her gallstone pain. Admits nausea but denies vomiting. Denies fever, chills. States she tried to eat a little bit of toast this morning but could not eat due to pain. Denies blood thinners. Denies urinary symptoms. Denies history of alcohol use. - Related Data Home Medications Medication Instructions Recorded Confirmed Celecoxib [CeleBREX] 200 mg PO DAILY 10/07/17 01/10/23 buPROPion XL [Wellbutrin Xl] 300 mg PO DAILY 02/04/19 01/10/23 [place] 1 tab PO DAILY 03/08/19 01/10/23 Cholecalciferol [Vitamin D3 (25 25 mcg PO DAILY 09/10/21 01/10/23 Mcg = 1000 Iu)] Levothyroxine Sodium [Synthroid] 75 mcg PO DAILY 09/10/21 01/10/23 Magnesium Oxide 400 mg PO DAILY 09/10/21 01/10/23 Allergies Allergy/AdvReac Type Severity Reaction Status Date / Time codeine AdvReac "Itching Verified 01/10/23 13:55 after taking for a few days" Review of Systems ROS Statement: Those systems with pertinent positive or pertinent negative responses have been documented in the HPI. ROS Other: All systems not noted in ROS Statement are negative. Past Medical History Past Medical History: Osteoarthritis (OA), Thyroid Disorder Additional Past Medical History / Comment(s): arthritis History of Any Multi-Drug Resistant Organisms: None Reported Past Surgical History: Cholecystectomy, Hysterectomy, Tubal Ligation Additional Past Surgical History / Comment(s): LEFT THYROID BIOPSY. Past Anesthesia/Blood Transfusion Reactions: No Reported Reaction Past Psychological History: Depression Smoking Status: Never smoker Past Alcohol Use History: Rare Past Drug Use History: Marijuana - Past Family History Mother Family Medical History: Cancer Additional Family Medical History / Comment(s): mother ovarian, father colon, son bone cancer Father Family Medical History: Cancer Additional Family Medical History / Comment(s): COLON CANCER Son(s) Family Medical History: Cancer Additional Family Medical History / Comment(s): BONE CANCER. General Exam Limitations: no limitations General appearance: alert, other (Patient is hysterical upon initial evaluation and requesting pain medication) Head exam: Present: atraumatic, normocephalic, normal inspection Eye exam: Present: normal appearance, PERRL, EOMI. Absent: scleral icterus, conjunctival injection, periorbital swelling ENT exam: Present: normal exam, mucous membranes moist Neck exam: Present: normal inspection. Absent: tenderness, meningismus, lymphadenopathy Respiratory exam: Present: normal lung sounds bilaterally. Absent: respiratory distress, wheezes, rales, rhonchi, stridor Cardiovascular Exam: Present: regular rate, normal rhythm, normal heart sounds. Absent: systolic murmur, diastolic murmur, rubs, gallop, clicks GI/Abdominal exam: Present: soft, normal bowel sounds. Absent: distended, tenderness, guarding, rebound, rigid Back exam: Absent: CVA tenderness (R), CVA tenderness (L) Neurological exam: Present: alert, oriented X3 Psychiatric exam: Present: normal affect, normal mood Skin exam: Present: warm, dry, intact, normal color. Absent: rash Course Vital Signs 05/19/24 05/19/24 12:22 14:28 Temperature 97.6 F Pulse Rate 79 80 Respiratory 18 18 Rate Blood Pressure 143/85 132/82 O2 Sat by Pulse 100 98 Oximetry Medical Decision Making - Medical Decision Making Was pt. sent in by a medical professional or institution ([facility], [employer], urgent care, hospital, or custodial...) When possible be specific @ -No Did you speak to anyone other than the patient for history (EMS, parent, family, police, friend...)? What history was obtained from this source @ -No Did you review nursing and triage notes (agree or disagree)? Why? @ -I reviewed and agree with nursing and triage notes Were old charts reviewed (outside hosp., previous admission, EMS record, old EKG, old radiological studies, urgent care reports/EKG's, custodial records)? Report findings @ -No old charts were reviewed Differential Diagnosis (chest pain, altered mental status, abdominal pain women, abdominal pain men, vaginal bleeding, weakness, fever, dyspnea, syncope, heada lit, dizziness, GI bleed, back pain, seizure, CVA, palpatations, mental health, musculoskeletal)? @ -Differential Abdominal Pain Women: Appendicitis, Cholecystitis, diverticulosis, ischemic bowel, pancreatitis, hepatitis, UTI, gastroenteritis, AAA, incarcerated hernia, bowel obstruction, constipation, inflammatory bowel, hepatitis, peptic ulcer disease, splenic infarction, perforated viscus, vulvitis, ovarian torsion, PID, kidney stone, placenta abruption, this is not meant to be an all-inclusive list EKG interpreted by me (3pts min.). @ -None X-rays interpreted by me (1pt min.). @ -None done CT interpreted by me (1pt min.). @ -CT abdomen pelvis reveals no acute disease U/S interpreted by me (1pt. min.). @ -None done What testing was considered but not performed or refused? (CT, X-rays, U/S, labs)? Why? @ -None What meds were considered but not given or refused? Why? @ -None Did you discuss the management of the patient with other professionals (professionals i.e. , PA, [employer], lab, RT, psych nurse, high school social studies tutor, software integrator, teacher, philanthropy officer, pillowcase turner)? Give summary @ -No Was smoking cessation discussed for >3mins.? @ -No Was critical care preformed (if so, how long)? @ -No Were there social determinants of health that impacted care today? How? (Homelessness, low income, unemployed, alcoholism, drug addiction, transportation, low edu. Level, literacy, decrease access to med. care, intermediate, rehab)? @ -No Was there de-escalation of care discussed even if they declined (Discuss DNR or withdrawal of care, Hospice)? DNR status @ -No What co-morbidities impacted this encounter? (DM, HTN, Smoking, COPD, CAD, Cancer, CVA, ARF, Chemo, Hep., AIDS, mental health diagnosis, sleep apnea, morbid obesity)? @ -None Was patient admitted / discharged? Hospital course, mention meds given and route, prescriptions, significant lab abnormalities, going to OR and other pertinent info. @ -Discharge. 59-year-old female presenting for epigastric pain with associated diarrhea x 1 day. History of cholecystectomy and hysterectomy. Abdomen soft and nonsurgical. Patient is provided with IV fluids, analgesics, and antiemetics. Lab work vital signs within acceptable limits. Lab work largely unremarkable, white blood cell count 9.4, lipase 238, normal alk phos at 63. Urinalysis remarkable for 1+ ketones otherwise negative for infection. CT abdomen pelvis reveals no acute disease. Upon reevaluation, patient reports significant improvement of symptoms. Discussed diagnosis of viral gastroenteritis. Provided with starter pack of Zofran as needed for nausea. Appropriate return precautions and supportive care discussed. Case was discussed with my ED attending Dr. Bourgeois. Undiagnosed new problem with uncertain prognosis? @ -No Drug Therapy requiring intensive monitoring for toxicity (Heparin, Nitro, Insulin, Cardizem)? @ -No Were any procedures done? @ -No Diagnosis/symptom? @ -Viral gastroenteritis Acute, or Chronic, or Acute on Chronic? @ -Acute Uncomplicated (without systemic symptoms) or Complicated (systemic symptoms)? @ -Complicated Side effects of treatment? @ -No Exacerbation, Progression, or Severe Exacerbation? @ -No Poses a threat to life or bodily function? How? (Chest pain, USA, DC, pneumonia, PE, COPD, DKA, ARF, appy, cholecystitis, CVA, Diverticulitis, Homicidal, Suicidal, threat to staff... and all critical care pts) @ -Not at this time - Lab Data Result diagrams: 05/19/24 12:52 05/19/24 12:52 Lab Results 05/19/24 05/19/24 05/19/24 Range/Units 12:52 12:52 12:52 WBC 9.4 (3.8-10.6) k/uL RBC 4.04 (3.80-5.40) m/uL Hgb 12.1 (11.4-16.0) gm/dL Hct 36.8 (34.0-46.0) % MCV 91.2 (80.0-100.0) fL MCH 29.8 (25.0-35.0) pg MCHC 32.7 (31.0-37.0) g/dL RDW 13.1 (11.5-15.5) % Plt Count 237 (150-450) k/uL MPV 7.2 Neutrophils % 75 % Lymphocytes % 16 % Monocytes % 5 % Eosinophils % 1 % Basophils % 0 % Neutrophils # 7.0 (1.3-7.7) k/uL Lymphocytes # 1.5 (1.0-4.8) k/uL Monocytes # 0.4 (0-1.0) k/uL Eosinophils # 0.1 (0-0.7) k/uL Basophils # 0.0 (0-0.2) k/uL Sodium 136 L (137-145) mmol/L Potassium 3.6 (3.5-5.1) mmol/L Chloride 110 H (98-107) mmol/L Carbon Dioxide 18 L (22-30) mmol/L Anion Gap 8 mmol/L BUN 17 (7-17) mg/dL Creatinine 0.62 (0.52-1.04) mg/dL Est GFR (CKD-EPI)AfAm >90 (>60 ml/min/1.73 sqM) Est GFR (CKD-EPI)NonAf >90 (>60 ml/min/1.73 sqM) Glucose 103 H (74-99) mg/dL Plasma Lactic Acid Trevor 1.5 (0.7-2.0) mmol/L Calcium 7.8 L (8.4-10.2) mg/dL Total Bilirubin 0.5 (0.2-1.3) mg/dL AST 21 (14-36) U/L ALT 17 (4-34) U/L Alkaline Phosphatase 63 (38-126) U/L Total Protein 5.8 L (6.3-8.2) g/dL Albumin 3.4 L (3.5-5.0) g/dL Lipase 238 (23-300) U/L Urine Color Urine Appearance (Clear) Urine pH (5.0-8.0) Ur Specific Norton (1.001-1.035) Urine Protein (Negative) Urine Glucose (UA) (Negative) Urine Ketones (Negative) Urine Blood (Negative) Urine Nitrite (Negative) Urine Bilirubin (Negative) Urine Urobilinogen (<2.0) mg/dL Ur Leukocyte Esterase (Negative) 05/19/24 Range/Units 14:20 WBC (3.8-10.6) k/uL RBC (3.80-5.40) m/uL Hgb (11.4-16.0) gm/dL Hct (34.0-46.0) % MCV (80.0-100.0) fL MCH (25.0-35.0) pg MCHC (31.0-37.0) g/dL RDW (11.5-15.5) % Plt Count (150-450) k/uL MPV Neutrophils % % Lymphocytes % % Monocytes % % Eosinophils % % Basophils % % Neutrophils # (1.3-7.7) k/uL Lymphocytes # (1.0-4.8) k/uL Monocytes # (0-1.0) k/uL Eosinophils # (0-0.7) k/uL Basophils # (0-0.2) k/uL Sodium (137-145) mmol/L Potassium (3.5-5.1) mmol/L Chloride (98-107) mmol/L Carbon Dioxide (22-30) mmol/L Anion Gap mmol/L BUN (7-17) mg/dL Creatinine (0.52-1.04) mg/dL Est GFR (CKD-EPI)AfAm (>60 ml/min/1.73 sqM) Est GFR (CKD-EPI)NonAf (>60 ml/min/1.73 sqM) Glucose (74-99) mg/dL Plasma Lactic Acid Trevor (0.7-2.0) mmol/L Calcium (8.4-10.2) mg/dL Total Bilirubin (0.2-1.3) mg/dL AST (14-36) U/L ALT (4-34) U/L Alkaline Phosphatase (38-126) U/L Total Protein (6.3-8.2) g/dL Albumin (3.5-5.0) g/dL Lipase (23-300) U/L Urine Color Colorless Urine Appearance Clear (Clear) Urine pH 6.5 (5.0-8.0) Ur Specific Norton 1.043 H (1.001-1.035) Urine Protein Negative (Negative) Urine Glucose (UA) Negative (Negative) Urine Ketones 1+ H (Negative) Urine Blood Negative (Negative) Urine Nitrite Negative (Negative) Urine Bilirubin Negative (Negative) Urine Urobilinogen <2.0 (<2.0) mg/dL Ur Leukocyte Esterase Negative (Negative) Disposition Clinical Impression: Viral gastroenteritis Disposition: HOME SELF-CARE Condition: Stable Instructions (If sedation given, give patient instructions): Gastroenteritis (ED) Additional Instructions: Take Zofran as needed for nausea. Continue to take sips of water/sports drinks throughout the day. Slowly introduce bland foods such as toast, bananas, rice, and applesauce into the diet as tolerated. Please return to the Emergency Department if symptoms worsen or any other concerns. Is patient prescribed a controlled substance at d/c from ED?: No Referrals: Nabeel Collins DO [Primary Care Provider] - 1-2 days Time of Disposition: 15:02
[2024-05-19] MEDS: KETOROLAC 15 MG/ML 1 ML VIAL IVP STA (12:50)
[2024-05-19] MEDS: HYDROmorphone 1 MG/ML 1 ML SYRINGE IVP STA (12:50)
[2024-05-19] MEDS: METOCLOPRAMIDE 5 MG/ML 2 ML VIAL IVP STA (12:50)
[2024-05-19] MEDS: SODIUM CHLORIDE 0.9% 1,000 ML IV STA (12:53)
[2024-05-19 12:58] LABS: Basophils % (A) 0 %; Eosinophils # (A) 0.1 k/uL (0-0.7); Eosinophils % (A) 1 %; HCT 36.8 % (34.0-46.0); HGB 12.1 gm/dL (11.4-16.0); Lymphocytes # (A) 1.5 k/uL (1.0-4.8); Lymphocytes % (A) 16 %; MCH 29.8 pg (25.0-35.0); MCHC 32.7 g/dL (31.0-37.0); MCV 91.2 fL (80.0-100.0); Mean Platelet Volume 7.2; Monocytes # (A) 0.4 k/uL (0-1.0); Monocytes % (A) 5 %; Neutrophils % (A) 75 %; Platelet Count 237 k/uL (150-450); RBC 4.04 m/uL (3.80-5.40); RDW 13.1 % (11.5-15.5); WBC 9.4 k/uL (3.8-10.6)
[2024-05-19 13:07] LABS: ALT 17 U/L (4-34); AST 21 U/L (14-36); African American GFR (CKD) >90 (>60 ml/min/1.73 sqM); Albumin 3.4 g/dL (3.5-5.0); Alkaline Phosphatase 63 U/L (38-126); Anion Gap 8 mmol/L; Blood Urea Nitrogen 17 mg/dL (7-17); Calcium 7.8 mg/dL (8.4-10.2); Carbon Dioxide 18 mmol/L (22-30); Chloride 110 mmol/L (98-107); Glucose 103 mg/dL (74-99); Lipase 238 U/L (23-300); Non-African American GFR(CKD) >90 (>60 ml/min/1.73 sqM); Potassium 3.6 mmol/L (3.5-5.1); Sodium 136 mmol/L (137-145); Total Bilirubin 0.5 mg/dL (0.2-1.3); Total Protein 5.8 g/dL (6.3-8.2)
--- NOTE | 2024-05-19 13:44 | CT ---
EXAMINATION TYPE: CT abdomen pelvis w con DATE OF EXAM: 05/19/2024 COMPARISON: 12/14/2015 CLINICAL INDICATION: Female, 59 years old with history of epigastric pain; PHH, Epigastric pain. TECHNIQUE: Performed without Oral Contrast and with IV Contrast, patient injected with 100 ml mL of Isovue 300. CT DLP: [address] CTDI: mGy Automated exposure control for dose reduction was used. FINDINGS: The lung bases are clear. The gallbladder is surgically absent. There is no biliary ductal dilatation. There is no focal mass or organomegaly involving the liver, pancreas, spleen or adrenal glands. There is no solid renal mass or hydronephrosis and there is homogeneous contrast enhancement of the r enal parenchyma. The caliber the abdominal aorta is normal is no retroperitoneal adenopathy or hemorr rah. The bowel loops are normal in caliber and there is no evidence of dilatation or obstruction. No infla mmatory changes are identified in the bowel wall or mesentery. There is no free intraperitoneal air or fluid. No pelvic mass, free fluid, abscess or adenopathy. There is surgical absence of the uterus. The osseous structures and soft tissues are intact. IMPRESSION: No acute changes within the abdomen or pelvis. Status post cholecystectomy and hysterectomy. [facility], , 05/19/2024 1:41 PM
[2024-05-19 14:36] LABS: Appearance,Urine Clear (Clear); Bilirubin,Urine Negative (Negative); Blood,Urine Negative (Negative); Color,Urine Colorless; Glucose,Urine (UA) Negative (Negative); Ketones,Urine 1+ (Negative); Leukocyte Esterase,Urine Negative (Negative); Nitrite,Urine Negative (Negative); PH, Urine 6.5 (5.0-8.0); Protein,Urine Negative (Negative); Specific Gravity,Urine 1.043 (1.001-1.035); Urobilinogen,Urine <2.0 mg/dL (<2.0)
[2024-05-19] MEDS: ONDANSETRON 4 MG ODT STARTER PACK 2 TAB BTL PO STA (15:06)
[2024-05-19 15:10] VITALS: BP 122/70; PULSE 78
== END 2024-05-19 15:10 | disposition home or self-care (01) ==
LOC: EC 12:21
DX: A08.4 Viral intestinal infection, unspecified (principal); Z88.5 Allergy status to narcotic agent
CPT/HCPCS: 36415; 93005; 80053; 83605; 83690; 85025; 81003; 74177; 99285; 96374; 96375 ×2; 96361; J2765; J1171; J1885; S0119; Q9967

== ENCOUNTER 2024-08-11 15:56 | Emergency (ER) | payer BC ==
[2024-08-11 16:05] VITALS: TEMP 97.7
[2024-08-11] MEDS: HYDROmorphone 0.5 MG/0.5 ML SYRINGE IVP STA ×2 (16:07→16:53)
[2024-08-11] MEDS: LIDOCAINE 2%-EPI 1:100,000 20 ML VIAL SUBMUCOSAL STA (16:14)
[2024-08-11] MEDS: DIPH,PERTUS(ACELL)TETVAC-LF 0.5 ML VIAL IM ONE (16:30)
[2024-08-11 16:34] LABS: Basophils # (A) 0.04 10*3/uL (0.00-0.10); Basophils % (A) 0.6 %; Eosinophils # (A) 0.16 10*3/uL (0.04-0.35); Eosinophils % (A) 2.4 %; HCT 36.1 % (37.2-46.3); HGB 12.4 g/dL (12.0-15.0); Lymphocytes # (A) 3.25 10*3/uL (0.90-5.00); Lymphocytes % (A) 49.6 %; MCH 30.5 pg (27.0-32.0); MCHC 34.3 g/dL (32.0-37.0); MCV 88.9 fL (80.0-97.0); Mean Platelet Volume 9.5 fL (9.5-12.2); Monocytes # (A) 0.45 10*3/uL (0.20-1.00); Monocytes % (A) 6.9 %; Neutrophils # (A) 2.64 10*3/uL (1.80-7.70); Neutrophils % (A) 40.3 %; Platelet Count 279 10*3/uL (140-440); RBC 4.06 10*6/uL (4.10-5.20); RDW 12.2 % (11.5-14.5); WBC 6.55 10*3/uL (4.50-10.00)
[2024-08-11] MEDS: FAMOTIDINE 20 MG/2 ML VIAL IV STA ×2 (16:39→16:54)
--- NOTE | 2024-08-11 16:39 | ED ---
General Adult HPI - General Chief complaint: Extremity Injury, Upper Stated complaint: laceration Time Seen by Provider: 08/11/24 16:18 Source: patient, EMS, RN notes reviewed, old records reviewed Mode of arrival: EMS Limitations: no limitations - History of Present Illness Initial comments: 59-year-old female presenting with laceration to the left wrist. Patient was lifting a heavy pot and the pot broke and a fragment lacerated the palmar surface of the left wrist. There was excessive bleeding on scene according to paramedics. Fire department had placed a tourniquet with concern for arterial injury. Patient denies use of any anticoagulation. No other injuries reported. - Related Data Home Medications Medication Instructions Recorded Confirmed Celecoxib [CeleBREX] 200 mg PO DAILY 10/07/17 01/10/23 buPROPion XL [Wellbutrin Xl] 300 mg PO DAILY 02/04/19 01/10/23 [place] 1 tab PO DAILY 03/08/19 01/10/23 Cholecalciferol [Vitamin D3 (25 25 mcg PO DAILY 09/10/21 01/10/23 Mcg = 1000 Iu)] Levothyroxine Sodium [Synthroid] 75 mcg PO DAILY 09/10/21 01/10/23 Magnesium Oxide 400 mg PO DAILY 09/10/21 01/10/23 Previous Rx's Medication Instructions Recorded Cephalexin [Keflex] 500 mg PO Q6HR 5 Days #20 cap 08/11/24 Allergies Allergy/AdvReac Type Severity Reaction Status Date / Time codeine AdvReac "Itching Verified 08/11/24 16:04 after taking for a few days" Review of Systems ROS Statement: Those systems with pertinent positive or pertinent negative responses have been documented in the HPI. ROS Other: All systems not noted in ROS Statement are negative. Past Medical History Past Medical History: Osteoarthritis (OA), Thyroid Disorder Additional Past Medical History / Comment(s): arthritis History of Any Multi-Drug Resistant Organisms: None Reported Past Surgical History: Cholecystectomy, Hysterectomy, Tubal Ligation Additional Past Surgical History / Comment(s): LEFT THYROID BIOPSY. double mastectomy Past Anesthesia/Blood Transfusion Reactions: No Reported Reaction Past Psychological History: Depression Smoking Status: Never smoker Past Alcohol Use History: Rare Past Drug Use History: Marijuana - Past Family History Mother Family Medical History: Cancer Additional Family Medical History / Comment(s): mother ovarian, father colon, son bone cancer Father Family Medical History: Cancer Additional Family Medical History / Comment(s): COLON CANCER Son(s) Family Medical History: Cancer Additional Family Medical History / Comment(s): BONE CANCER. General Exam Limitations: no limitations General appearance: alert, in no apparent distress Head exam: Present: atraumatic, normocephalic Eye exam: Present: normal appearance, PERRL ENT exam: Present: normal exam Neck exam: Present: normal inspection. Absent: tenderness, meningismus Respiratory exam: Present: normal lung sounds bilaterally. Absent: respiratory distress, wheezes Cardiovascular Exam: Present: regular rate, normal rhythm GI/Abdominal exam: Present: soft. Absent: distended, tenderness Extremities exam: Present: other (Left upper extremity, tourniquet placed over the proximal forearm, 8 cm laceration over the ventral surface of the distal wrist with significant hemorrhage.) Neurological exam: Present: alert, oriented X3, CN II-XII intact. Absent: motor sensory deficit Psychiatric exam: Present: normal affect, normal mood Skin exam: Present: warm, dry Course Vital Signs 08/11/24 08/11/24 08/11/24 15:58 16:18 17:05 Temperature 97.7 F Pulse Rate 94 96 77 Respiratory 18 16 Rate Blood Pressure 127/88 115/86 110/77 O2 Sat by Pulse 100 99 100 Oximetry 08/11/24 17:15 Temperature Pulse Rate 77 Respiratory 22 Rate Blood Pressure 136/95 O2 Sat by Pulse Oximetry - Reevaluation(s) Reevaluation #1: 08/11/24 16:25 vascular surgery contacted for evaluation of possible arterial injury Procedures - Laceration Laceration #1 Consent Obtained: emergent situation Indication: laceration Site: upper extremity Size (cm): 8 Description: linear Depth: arterial injury Anesthetic Used: lidocaine 2%, with epi Anesthesia Technique: local infiltration Amount (mls): 5 Pre-repair: wound explored, irrigated extensively, deep structures intact Type of Sutures: nylon Size of Sutures: 5-0 Number of Sutures: 15 Technique: simple, interrupted Complications: bleeding Patient Tolerated Procedure: well Laceration #2 Consent Obtained: emergent situation Indication: laceration Site: hand Size (cm): 2 Description: linear Anesthetic Used: lidocaine 1% Anesthesia Technique: local infiltration Amount (mls): 2 Pre-repair: wound explored, irrigated extensively Size of Sutures: 5-0 Number of Sutures: 2 Technique: simple, interrupted Patient Tolerated Procedure: well Medical Decision Making - Medical Decision Making Was pt. sent in by a medical professional or institution ([facility]UC[facility] Lee, [employer]MENT[employer]ER INST[employer]ER, urgent care, hospital, or intermediate...) When possible be specific @ -[No] Did you speak to anyone other than the patient for history (EMS, parent, family, police, friend...)? What history was obtained from this source @ -[No] Did you review nursing and triage notes (agree or disagree)? Why? @ -[I reviewed and agree with nursing and triage notes] Were old charts reviewed (outside hosp., previous admission, EMS record, old EKG, old radiological studies, urgent care reports/EKG's, intermediate records)? Report findings @ -[No old charts were reviewed] Differential Diagnosis (chest pain, altered mental status, abdominal pain women, abdominal pain men, vaginal bleeding, weakness, fever, dyspnea, syncope, headache, dizziness, GI bleed, back pain, seizure, CVA, palpatations, mental health, musculoskeletal)? @ -[not applicable] EKG interpreted by me (3pts min.). @ -EKG at 1602, sinus rhythm, low voltage, rate of 94, DC interval 157, QRS duration 78, QTc 380, no ST segment elevation, repeat EKG at 1650 showing sinus rhythm, rate of 84, DC interval 174, QRS duration 85, QTc [address] segment elevation. X-rays interpreted by me (1pt min.). @ -[None done] CT interpreted by me (1pt min.). @ -[None done] U/S interpreted by me (1pt. min.). @ -[None done] What testing was considered but not performed or refused? (CT, X-rays, U/S, labs)? Why? @ -[None] What meds were considered but not given or refused? Why? @ -[None] Did you discuss the management of the patient with other professionals (professionals i.e. LUCÍA Lee, SE[employer]MENT[employer] P[employer]ER INSTALLER, lab, RT, psych nurse, social sciences instructor, adjunct trainer, teacher, ship's officer, case management social worker)? Give summary @ -[No] Was smoking cessation discussed for >3mins.? @ -[No] Was critical care preformed (if so, how long)? @Yes, 35 minutes Were there social determinants of health that impacted care today? How? (Homelessness, low income, unemployed, alcoholism, drug addiction, transportation, low edu. Level, literacy, decrease access to med. care, [facility], rehab)? @ -[No] Was there de-escalation of care discussed even if they declined (Discuss DNR or withdrawal of care, Hospice)? DNR status @ -[No] What co-morbidities impacted this encounter? (DM, HTN, Smoking, COPD, CAD, Cancer, CVA, ARF, Chemo, Hep., AIDS, mental health diagnosis, sleep apnea, morbid obesity)? @ -[None] Was patient admitted / discharged? Hospital course, mention meds given and route, prescriptions, significant lab abnormalities, going to OR and other pertinent info. @ -59-year-old female presents with left wrist laceration, large laceration 8 to 10 cm. There is significant hemorrhage both on scene and on the dressing upon arrival. Tourniquet had been placed by paramedics at 1534 and was removed by myself at 1604. Direct pressure was applied to suspected arterial skin vessel. There was an underlying palpable radial pulse. After tourniquet was removed the hand was reperfused well. Due to persistent bleeding vascular surgery was consulted and the patient was evaluated by Dr. Flowers in the emergency department, felt that this was superficial and did not involve the deeper arterial injury. Wound was irrigated with normal saline and repaired with nylon suture, total 15 sutures. Patient was observed to ensure there was no persistent bleeding. Due to the deep laceration she was placed on prophylactic antibiotics and was given follow- up with hand surgery. Undiagnosed new problem with uncertain prognosis? @ -[No] Drug Therapy requiring intensive monitoring for toxicity (Heparin, Nitro, Insulin, Cardizem)? @ -[No] Were any procedures done? @ -Yes laceration repair x 2 Diagnosis/symptom? @ -[Left wrist laceration Acute, or Chronic, or Acute on Chronic? @ -[default] Uncomplicated (without systemic symptoms) or Complicated (systemic symptoms)? @ -[default] Side effects of treatment? @ -[No] Exacerbation, Progression, or Severe Exacerbation? @ -[No] Poses a threat to life or bodily function? How? (Chest pain, [place], [place], pneumonia, PE, COPD, DKA, ARF, appy, cholecystitis, CVA, Diverticulitis, Homicidal, Suicidal, threat to staff... and all critical care pts) @ -[No] - Lab Data Result diagrams: 08/11/24 16:16 08/11/24 16:16 Lab Results 08/11/24 08/11/24 08/11/24 Range/Units 16:11 16:16 16:16 WBC 6.55 (4.50-10.00) 10*3/uL RBC 4.06 L (4.10-5.20) 10*6/uL Hgb 12.4 (12.0-15.0) g/dL Hct 36.1 L (37.2-46.3) % MCV 88.9 (80.0-97.0) fL MCH 30.5 (27.0-32.0) pg MCHC 34.3 (32.0-37.0) g/dL Plt Count 279 (140-440) 10*3/uL MPV 9.5 (9.5-12.2) fL Immature Gran % (Auto) 0.2 % Neutrophils % 40.3 % Lymphocytes % 49.6 % Monocytes % 6.9 % Eosinophils % 2.4 % Basophils % 0.6 % Immature Gran # 0.01 (0.00-0.04) 10*3/uL Neutrophils # 2.64 (1.80-7.70) 10*3/uL Lymphocytes # 3.25 (0.90-5.00) 10*3/uL Monocytes # 0.45 (0.20-1.00) 10*3/uL Eosinophils # 0.16 (0.04-0.35) 10*3/uL Basophils # 0.04 (0.00-0.10) 10*3/uL PT 11.3 (10.0-12.5) sec INR 1.0 (<1.2) APTT 25.4 (22.0-30.0) sec Sodium (137-145) mmol/L Potassium (3.5-5.1) mmol/L Chloride (98-107) mmol/L Carbon Dioxide (22-30) mmol/L Anion Gap mmol/L BUN (7-17) mg/dL Creatinine (0.52-1.04) mg/dL Est GFR (CKD-EPI)AfAm (>60 ml/min/1.73 sqM) Est GFR (CKD-EPI)NonAf (>60 ml/min/1.73 sqM) Glucose (74-99) mg/dL Calcium (8.4-10.2) mg/dL Total Bilirubin (0.2-1.3) mg/dL AST (14-36) U/L ALT (4-34) U/L Alkaline Phosphatase (38-126) U/L Troponin I (0.000-0.034) ng/mL Total Protein (6.3-8.2) g/dL Albumin (3.5-5.0) g/dL Lipase (23-300) U/L Blood Type O Positive Blood Type Recheck O Pos Bld Type Recheck Status No Antibody Screen NEGATIVE Spec Expiration Date 08/14/2024 - 231008/11/24 08/11/24 08/11/24 Range/Units 16:16 17:37 17:37 WBC (4.50-10.00) 10*3/uL RBC (4.10-5.20) 10*6/uL Hgb (12.0-15.0) g/dL Hct (37.2-46.3) % MCV (80.0-97.0) fL MCH (27.0-32.0) pg MCHC (32.0-37.0) g/dL Plt Count (140-440) 10*3/uL MPV (9.5-12.2) fL Immature Gran % (Auto) % Neutrophils % % Lymphocytes % % Monocytes % % Eosinophils % % Basophils % % Immature Gran # (0.00-0.04) 10*3/uL Neutrophils # (1.80-7.70) 10*3/uL Lymphocytes # (0.90-5.00) 10*3/uL Monocytes # (0.20-1.00) 10*3/uL Eosinophils # (0.04-0.35) 10*3/uL Basophils # (0.00-0.10) 10*3/uL PT (10.0-12.5) sec INR (<1.2) APTT (22.0-30.0) sec Sodium 137 (137-145) mmol/L Potassium 3.7 (3.5-5.1) mmol/L Chloride 106 (98-107) mmol/L Carbon Dioxide 21 L (22-30) mmol/L Anion Gap 10 mmol/L BUN 19 H (7-17) mg/dL Creatinine 0.80 (0.52-1.04) mg/dL Est GFR (CKD-EPI)AfAm >90 (>60 ml/min/1.73 sqM) Est GFR (CKD-EPI)NonAf 81 (>60 ml/min/1.73 sqM) Glucose 100 H (74-99) mg/dL Calcium 9.4 (8.4-10.2) mg/dL Total Bilirubin 0.9 (0.2-1.3) mg/dL AST 23 (14-36) U/L ALT 22 (4-34) U/L Alkaline Phosphatase 69 (38-126) U/L Troponin I <0.012 (0.000-0.034) ng/mL Total Protein 6.8 (6.3-8.2) g/dL Albumin 4.1 (3.5-5.0) g/dL Lipase 191 (23-300) U/L Blood Type Blood Type Recheck Bld Type Recheck Status Antibody Screen Spec Expiration Date Disposition Clinical Impression: Laceration of wrist Disposition: HOME SELF-CARE Condition: Fair Instructions (If sedation given, give patient instructions): Laceration (DC), Care For Your Stitches (DC) Prescriptions: Cephalexin [Keflex] 500 mg PO Q6HR 5 Days #20 cap Is patient prescribed a controlled substance at d/c from ED?: No Referrals: Nabeel Collins DO [Primary Care Provider] - 1-2 days Cynthia Choudhury [Doctor of Osteopathic Medicine] - 1-2 days Time of Disposition: 18:24
[2024-08-11 16:48] LABS: Partial Thromboplastin Time 25.4 sec (22.0-30.0); Prothrombin Time 11.3 sec (10.0-12.5)
[2024-08-11 16:49] LABS: ALT 22 U/L (4-34); AST 23 U/L (14-36); African American GFR (CKD) >90 (>60 ml/min/1.73 sqM); Albumin 4.1 g/dL (3.5-5.0); Alkaline Phosphatase 69 U/L (38-126); Anion Gap 10 mmol/L; Blood Urea Nitrogen 19 mg/dL (7-17); Calcium 9.4 mg/dL (8.4-10.2); Carbon Dioxide 21 mmol/L (22-30); Chloride 106 mmol/L (98-107); Glucose 100 mg/dL (74-99); Non-African American GFR(CKD) 81 (>60 ml/min/1.73 sqM); Potassium 3.7 mmol/L (3.5-5.1); Sodium 137 mmol/L (137-145); Total Bilirubin 0.9 mg/dL (0.2-1.3); Total Protein 6.8 g/dL (6.3-8.2)
[2024-08-11] MEDS: ONDANSETRON 4 MG/2 ML VIAL IVP STA (16:53)
[2024-08-11] MEDS: LORazepam 1 MG/0.5 ML VIAL IV STA (17:04)
[2024-08-11] MEDS: MAG HYDROX/AL HYDROX/SIMETH 30 ML CUP PO STA (17:05)
[2024-08-11] MEDS: LIDOCAINE 1% INJ 10MG/ML (20 ML MDV) SQ ONE (17:26)
[2024-08-11] MEDS: ceFAZolin 2 GM in DEXTROSE 5% IN WATER 50 ML IVPB ONE (18:20)
[2024-08-11] MEDS: HYDROcodone/APAP 5-325MG 1 EACH TAB PO STA (19:38)
[2024-08-11 19:52] VITALS: BP 132/88; PULSE 88; RESP 16
--- NOTE | 2024-08-12 15:27 | P.GSCN ---
History of Present Illness Consult date: 08/12/24 History of present illness: Patient is a 59-year-old female who presented to the ER after sustaining laceration to her left wrist dropping a heavy pot that broke and a fragment lacerating the palmar surface of her lateral portion of the wrist. According to the ER, there was excessive bleeding and a tourniquet was placed by fire department. Upon evaluation by the ER physician there was an area of pulsatile bleeding. Manual pressure was held until further evaluation could be performed. This significantly improved. Vascular was asked to evaluate the patient to see if there is any further need for surgical intervention. At the time of my evaluation of the patient she is anxious complaining of epigastric pain. She seems motor sensory intact of her left upper extremity. Past Medical History Past Medical History: Osteoarthritis (OA), Thyroid Disorder Additional Past Medical History / Comment(s): arthritis History of Any Multi-Drug Resistant Organisms: None Reported Past Surgical History: Cholecystectomy, Hysterectomy, Tubal Ligation Additional Past Surgical History / Comment(s): LEFT THYROID BIOPSY. double mastectomy Past Anesthesia/Blood Transfusion Reactions: No Reported Reaction Past Psychological History: Depression Smoking Status: Never smoker Past Alcohol Use History: Rare Past Drug Use History: Marijuana - Past Family History Mother Family Medical History: Cancer Additional Family Medical History / Comment(s): mother ovarian, father colon, son bone cancer Father Family Medical History: Cancer Additional Family Medical History / Comment(s): COLON CANCER Son(s) Family Medical History: Cancer Additional Family Medical History / Comment(s): BONE CANCER. Medications and Allergies Home Medications Medication Instructions Recorded Confirmed Type Celecoxib [CeleBREX] 200 mg PO DAILY 10/07/17 01/10/23 History buPROPion XL [Wellbutrin Xl] 300 mg PO DAILY 02/04/19 01/10/23 History [place] 1 tab PO DAILY 03/08/19 01/10/23 History Cholecalciferol [Vitamin D3 (25 25 mcg PO DAILY 09/10/21 01/10/23 History Mcg = 1000 Iu)] Levothyroxine Sodium [Synthroid] 75 mcg PO DAILY 09/10/21 01/10/23 History Magnesium Oxide 400 mg PO DAILY 09/10/21 01/10/23 History Cephalexin [Keflex] 500 mg PO Q6HR 5 Days #20 cap 08/11/24 Rx HYDROcodone/APAP 5-325MG [Joes 1 tab PO Q6HR PRN #12 tab 08/11/24 Rx 5-325] Allergies Allergy/AdvReac Type Severity Reaction Status Date / Time codeine AdvReac "Itching Verified 08/11/24 16:04 after taking for a few days" Surgical - Exam Vital Signs Temp Pulse Resp BP Pulse Ox 97.7 F 94 18 127/88 100 08/11/24 15:58 08/11/24 15:58 08/11/24 15:58 08/11/24 15:58 08/11/24 15:58 General is a pleasant cooperative female in mild distress. Heart was tachycardic. Respirations nonlabored. Abdomen is soft although patient complaining of epigastric pain. The left upper extremity is warm and dry. The tourniquet has been removed. The laceration approximately 7 to 8 cm with jagged skin edge. Does not appear to have disruption of the fascia. Palpable radial pulse. Oozing skin borders. Silver nitrate is applied and hemostasis appeared adequate. Motor sensory intact of the hand Results - Labs 08/11/24 16:16 08/11/24 16:16 Abnormal Lab Results - Last 24 Hours (Table) 08/11/24 08/11/24 Range/Units 16:16 16:16 RBC 4.06 L (4.10-5.20) 10*6/uL Hct 36.1 L (37.2-46.3) % Carbon Dioxide 21 L (22-30) mmol/L BUN 19 H (7-17) mg/dL Glucose 100 H (74-99) mg/dL Diabetes panel 08/11/24 Range/Units 16:16 Sodium 137 (137-145) mmol/L Potassium 3.7 (3.5-5.1) mmol/L Chloride 106 (98-107) mmol/L Carbon Dioxide 21 L (22-30) mmol/L BUN 19 H (7-17) mg/dL Creatinine 0.80 (0.52-1.04) mg/dL Glucose 100 H (74-99) mg/dL Calcium 9.4 (8.4-10.2) mg/dL AST 23 (14-36) U/L ALT 22 (4-34) U/L Alkaline Phosphatase 69 (38-126) U/L Total Protein 6.8 (6.3-8.2) g/dL Albumin 4.1 (3.5-5.0) g/dL Calcium panel 08/11/24 Range/Units 16:16 Calcium 9.4 (8.4-10.2) mg/dL Albumin 4.1 (3.5-5.0) g/dL Pituitary panel 08/11/24 Range/Units 16:16 Sodium 137 (137-145) mmol/L Potassium 3.7 (3.5-5.1) mmol/L Chloride 106 (98-107) mmol/L Carbon Dioxide 21 L (22-30) mmol/L BUN 19 H (7-17) mg/dL Creatinine 0.80 (0.52-1.04) mg/dL Glucose 100 H (74-99) mg/dL Calcium 9.4 (8.4-10.2) mg/dL Adrenal panel 08/11/24 Range/Units 16:16 Sodium 137 (137-145) mmol/L Potassium 3.7 (3.5-5.1) mmol/L Chloride 106 (98-107) mmol/L Carbon Dioxide 21 L (22-30) mmol/L BUN 19 H (7-17) mg/dL Creatinine 0.80 (0.52-1.04) mg/dL Glucose 100 H (74-99) mg/dL Calcium 9.4 (8.4-10.2) mg/dL Total Bilirubin 0.9 (0.2-1.3) mg/dL AST 23 (14-36) U/L ALT 22 (4-34) U/L Alkaline Phosphatase 69 (38-126) U/L Total Protein 6.8 (6.3-8.2) g/dL Albumin 4.1 (3.5-5.0) g/dL Assessment and Plan Assessment: Left upper extremity laceration Rule out significant arterial bleed Plan: I was able to see and evaluate the patient in the emergency room. It appears that the injury itself is likely more superficial as the fascia is not seem disrupted and the pulse is beneath this and carried out throughout the levels of the laceration beneath the fascia. Did apply some silver nitrate to the bleeding skin edges. Recommend aggressive washout and closure per ER. Consider hand surgery follow-up to evaluate for any further disruption however nothing obvious at this time
== END 2024-08-11 20:06 | disposition home or self-care (01) ==
LOC: EC 15:56
DX: S61.512A Laceration without foreign body of left wrist, initial encounter (principal); Z88.5 Allergy status to narcotic agent; Z23 Encounter for immunization; W45.8XXA Other foreign body or object entering through skin, initial encounter
CPT/HCPCS: 99285; 96365; 96375; 96376; 90471; 36415; 93005; 86900; 86901; 80053; 83690; 84484; 85025; 85610; 85730; 86850; 90715; 12004; J2060; J0690; J2405; J2003; J1171; J1308